=== PATIENT | female | born 1945 | race Caucasian/White ===

== ENCOUNTER → 2019-07-26 13:51 | Outpatient (CLI) | payer MEDICARE, MEDICAID, SELFPAY ==
[2017-05-06 06:31] VITALS: BMI 34.7
== END ==
DX: N39.0 Urinary tract infection, site not specified (principal)
CPT/HCPCS: 87086; 87088

== ENCOUNTER → 2021-02-10 12:38 | Outpatient (CLI) | payer MEDICARE, MEDICAID, SELFPAY ==
--- NOTE | 2021-02-10 12:41 | US_ITS ---
STUDY: RENAL ULTRASOUND - COMPLETE REASON FOR EXAM: Female, 75 years old. CKD TECHNIQUE: Ultrasound evaluation of the kidneys was performed with real-time and static coburn-scale imaging. COMPARISON: None. FINDINGS: RIGHT KIDNEY: Normal location of the right kidney, which is normal in size. The right kidney measures 10 cm x 5.5 cm x 3.8 cm. There is a normal cortex of the right kidney. The renal cortex measures 1.2 cm. There is no right renal mass or cyst. There are no right renal calculi. There is no right hydronephrosis. DISTAL RIGHT URETER: There is non-visualization of the distal right ureter. There is no demonstrated right ureterovesical junction calculus. There is a visualized right ureteral jet. LEFT KIDNEY: Normal location of the left kidney, which is normal in size. The left kidney measures 9.3 cm x 5 cm x 5.3 cm. There is a normal cortex of the left kidney. The renal cortex measures 1.7 cm. 2 renal cysts are seen. The larger measures 1.2 cm x 1.4 cm x 1 cm. There are no left renal calculi. There is no left hydronephrosis. DISTAL LEFT URETER: There is non-visualization of the distal left ureter. There is no demonstrated left ureterovesical junction calculus. There is a visualized left ureteral jet. BLADDER: The distended urinary bladder has a volume of 327 ml. There is a normal wall thickness of the distended urinary bladder. There is no demonstrated mass within the urinary bladder. There are no demonstrated bladder calculi. US/Kidney and Bladder IMPRESSION: There are 2 right renal cysts. Electronically Signed: Anand Keller MD at 14:24 EDT , Service support ,
== END ==
PROVIDERS: Referring Provider Nurse Practitioner Adult Health; Visit Provider Nurse Practitioner Adult Health
DX: N18.30 Chronic kidney disease, stage 3 unspecified (principal)
CPT/HCPCS: 76770

== ENCOUNTER → 2022-01-21 | Outpatient (CLI) | payer MEDICARE, MEDICAID, SELFPAY ==
[2022-01-21 13:50] VITALS: PULSE 102; PULSE 109; PULSE 110; PULSE 111; PULSE 113; PULSE 82; PULSE 85; O2SAT 91; O2SAT 94; O2SAT 95; O2SAT 96; O2SAT 98
--- NOTE | 2022-01-22 08:15 | WT_ITS ---
PSN 6 Minute Walk Test 6 Minute Walk Test 6 Minute Walk Test: 6 Minute Walk Test PSN:6-Minute Walk Test Start: 01/21/22 13:50 Freq: Status: Active Protocol: [id number] Document 01/21/22 13:50 FR (Rec: 01/21/22 13:57 FR [id number]) 6 Minute Walk Test Date Performed 01/21/22 Time Performed 13:15 Height 5 ft 4 in Weight: 240 lb Weight in Pounds 240.[address]: DR. SCOTT FIO2 (% Oxygen) 21 Assistive device used: Cane Pre-test Oxygen Delivery Method Room Air Pulse Ox (%) 98 Pulse Rate (60-100 beats/min) 82 Dyspnea Lindsay Scale (0-10) 6 Exertion Lindsay Scale (6-20) 12 1st minute Oxygen Delivery Method Room Air Pulse Ox (%) 91 Pulse Rate (60-100 beats/min) 102 H 2nd minute Oxygen Delivery Method Room Air Pulse Ox (%) 95 Pulse Rate (60-100 beats/min) 109 H Reported Symptoms Increased Work of Breathing 3rd minute Oxygen Delivery Method Room Air Pulse Ox (%) 94 Pulse Rate (60-100 beats/min) 111 H Reported Symptoms Increased Work of Breathing 4th minute Oxygen Delivery Method Room Air Pulse Ox (%) 95 Pulse Rate (60-100 beats/min) 111 H Number of Rests Taken 1 5th minute Oxygen Delivery Method Room Air Pulse Ox (%) 94 Pulse Rate (60-100 beats/min) 113 H Reported Symptoms Increased Work of Breathing 6th minute Oxygen Delivery Method Room Air Pulse Ox (%) 95 Pulse Rate (60-100 beats/min) 110 H Dyspnea Lindsay Scale (0-10) 10 Exertion Lindsay Scale (6-20) 20 Reported Symptoms Increased Work of Breathing Post-test Oxygen Delivery Method Room Air Pulse Ox (%) 96 Pulse Rate (60-100 beats/min) 85 Full Laps Walked 12 Partial Lap, Number of Tiles Walked 21 Total Distance Walked (ft) 729 Interpretation Interpretation: The patient ambulated 729 feet over the course of 6 minutes beginning on room air with the use of a cane. Pretesting oxygen saturation was noted to be 98% on room air. With ambulation, the cortes oxygen saturation was 91%. This testing indicates the presence of impaired walk distance and significant exertional oxygen desaturation. Recommendations Recommendations: There is no indication for the use of supplemental oxygen at this time. Olivier liam, close interval follow-up is recommended, given the degree of oxygen desaturation noted during this study.
== END | disposition home or self-care (01) ==
LOC: PSN 13:11
PROVIDERS: Referring Provider Internal Medicine Critical Care Medicine; Visit Provider Internal Medicine Critical Care Medicine
DX: R06.02 Shortness of breath (principal)
CPT/HCPCS: 94618

== ENCOUNTER → 2022-02-12 | Outpatient (CLI) | payer MEDICARE, MEDICAID, SELFPAY ==
--- NOTE | 2022-02-12 15:25 | CT_ITS ---
EXAM: CT CHEST WITHOUT INTRAVENOUS CONTRAST CLINICAL INDICATION: shortness of breath TECHNIQUE: Helically acquired images were obtained of the chest without intravenous contrast. This CT exam was performed using one or more of the following dose reduction techniques: automated exposure control, adjustment of the mA and/or kV according to patient size, and/or use of iterative reconstruction technique. This report was created using Periscope report generation technology. COMPARISON: None. FINDINGS: LUNGS AND PLEURAL SPACES: Unremarkable. No mass. No consolidation or edema. No pleural effusion or thickening. No pneumothorax. HEART: Unremarkable. Heart size is normal. No pericardial effusion. No significant coronary artery calcifications. MEDIASTINUM: There is a calcified subcarinal node. Esophagus is unremarkable. No hiatal hernia. THYROID: Unremarkable. No thyroid lesions. BONES/JOINTS: Unremarkable. No suspicious lytic or blastic abnormality. VASCULATURE: Unremarkable. Thoracic aorta is non-dilated. CT/Chest without Contrast IMPRESSION: No acute findings in the chest. Electronically Signed: Robert Zaidi MD at 17:55 EDT ,
== END | disposition home or self-care (01) ==
LOC: CT 15:24
PROVIDERS: Referring Provider Nurse Practitioner Acute Care; Visit Provider Nurse Practitioner Acute Care
DX: R06.02 Shortness of breath (principal)
CPT/HCPCS: 71250

== ENCOUNTER → 2022-07-15 | Outpatient (CLI) | payer MEDICARE, MEDICAID, SELFPAY ==
--- NOTE | 2022-07-15 13:43 | CPS ---
Patient had one dose of sterile saline for inhalation per testing protocol followed by 4 increasing methacholine doses. Patient had a 20% drop in FEV1 after the 4th dose, stopped testing and administered an Albuterol nebulizer treatment. 5th dose of methacholine was placed in the pharmaceutical waste container.
--- NOTE | 2022-07-16 05:39 | BRONCHALL_ITS ---
Bronchoprovocation Challenge Bronchoprovocation Challenge Bronchoprovocation Challenge: Brief HPI: Patient is a 76 year old female, currently under the care of Dr. Rhoades, who presents to [facility] for a bronchoprovocation study secondary to diagnosis of dyspnea. Respiratory therapist reports good effort and reproducible results. Interpretation: Initial spirometry showed no large airways obstructive ventilatory defect. The patient was then given increasingly concentrated doses of methacholine in a stepwise/standardized fashion, using a modified ATS protocol. [The patient had a significant reduction in FEV1 by] 28% and a calculated PD20 of 0.112. Impression: Positive bronchoprovocation study in a range consistent with a diagnosis of asthma
== END | disposition home or self-care (01) ==
PROVIDERS: Referring Provider Internal Medicine Critical Care Medicine; Visit Provider Internal Medicine Critical Care Medicine
DX: R06.02 Shortness of breath (principal)
CPT/HCPCS: 94070; 95070; J3490; J7674

== ENCOUNTER → 2022-07-30 | Outpatient (CLI) | payer MEDICARE, MEDICAID, SELFPAY ==
--- NOTE | 2022-07-30 12:39 | ECHOCS_ITS ---
Reason For Study: DYSPNEA/SOB Procedure This was a 2D Doppler, Color Flow transthoracic echocardiogram. The study was technically difficult. Exam performed in department. Left Ventricle Normal LV size. Left ventricular systolic function is normal. The estimated ejection fraction is 65 %. Stage 1 diastolic dysfunction. No regional wall motion abnormalities noted. Right Ventricle Normal RV size. Normal systolic function. Atria Normal left atrium. Normal right atrium. Mitral Valve Normal mitral valve. Tricuspid Valve Normal tricuspid valve. Mild tricuspid valve insufficiency. Pulmonary artery systolic pressure is 36 mmHg. Aortic Valve Normal aortic valve. Pulmonic Valve Normal pulmonic valve. Great Vessels Normal aortic root. The pulmonary artery is normal size. Inferior vena cava collapse with respiration. Pericardium/Pleural No pericardial effusion. Medication 22 gauge I.V. with prn adaptor inserted into right arm. Diluted definity 3ml given slow IV push to enhance endocardial definition. MMode/2D Measurements & Calculations LVIDd: 3.9 cm IVSd: 1.1 cm Ao root diam: 2.8 cm LVIDs: 2.4 cm LVPWd: 1.1 cm RVDd: 3.9 cm FS: 38.6 % LAV(MOD-bp): 30.0 ml LVAd ap4: 26.2 cm2 SV(MOD-sp4): 52.2 ml LAV(MOD-bp) Indexed: 14.3 ml/m2 LVLd ap4: 7.4 cm LAV(MOD-sp2): 27.0 ml EDV(MOD-sp4): 74.9 ml LAV(MOD-sp4): 32.5 ml EDV(sp4-el): 79.0 ml LVAs ap4: 12.8 cm2 LVLs ap4: 5.9 cm ESV(MOD-sp4): 22.8 ml ESV(sp4-el): 23.7 ml EF(MOD-sp4): 69.6 % EF(sp4-el): 70.1 % SV(sp4-el): 55.3 ml LA A4 area: 14.0 cm2 LA dimension(2D): 3.2 cm RA A4 area: 11.3 cm2 Time Measurements MV dec time: 0.19 sec Doppler Measurements & Calculations MV E max zev: 69.7 cm/sec Lat Peak E' Zev: 10.5 cm/sec Med Peak E' Zev: 9.8 cm/sec MV A max zev: 81.6 cm/sec E/E' lat: 6.6 E/E' med: 7.1 MV E/A: 0.85 Ao V2 max: 136.2 cm/sec LV V1 max: 124.4 cm/sec PA V2 max: 129.2 cm/sec Ao max P.4 mmHg LV V1 max P.2 mmHg TR max zev: 284.7 cm/sec TR max P.4 mmHg ECHO/Echo Complete W/ Contrast Interpretation Summary Normal LV size. Left ventricular systolic function is normal. The estimated ejection fraction is 65 %. Stage 1 diastolic dysfunction. Pulmonary artery systolic pressure is 36 mmHg. Contrast injection was performed. Ordering Physician: Mulugeta Rhoades Referring Physician: EMMA FOSTER Performed By: Marilyn Singh RDCS
== END | disposition home or self-care (01) ==
LOC: CVS 12:37
PROVIDERS: Visit Provider Internal Medicine Critical Care Medicine
DX: R06.02 Shortness of breath (principal)
CPT/HCPCS: 93306; Q9957; A4216; C8929

== ENCOUNTER → 2023-08-24 | Outpatient (CLI) | payer MEDICARE, MEDICAID, SELFPAY | END | disposition home or self-care (01) | LOC: SL 20:00 | PROVIDERS: Referring Provider Nurse Practitioner Acute Care; Visit Provider Nurse Practitioner Acute Care | DX: G47.10 Hypersomnia, unspecified (principal) | CPT/HCPCS: 95810 ==

== ENCOUNTER → 2023-09-20 | Outpatient (CLI) | payer MEDICARE, MEDICAID, SELFPAY ==
[2023-09-20] MEDS: Betamethasone/Betamethasone 30 MG/5 ML Vial 12 MG INTRAARTIC (13:45)
[2023-09-20] MEDS: Lidocaine 2% (5ml sdv) 5 ML VIAL.MPF INFILT (13:45)
--- NOTE | 2023-09-20 13:57 | PCM.OP.PRO ---
Procedure Report Date of Procedure: 09/20/23 Assessment & Plan Assessment/Plan (1) Primary osteoarthritis of right shoulder: PLAN: PROCEDURE: Fluoroscopic Guided right shoulder injection ORDERING PROVIDER: Dr. Jerel Lewis INDICATION: Female, 77 years old. Primary osteoarthritis of right shoulder. PROVIDER: QUEENIE Cartagena PROCEDURE: CONSENT: The risks, benefits, and alternatives to the procedure were explained to the patient. The specific risks of bleeding, infection, and neurovascular injury were detailed and accepted. Witnessed informed consent was obtained. TECHNIQUE: The right shoulder access site was prepped and draped in sterile fashion. 2% Lidocaine was administered subcutaneously for local anesthesia. A 22-gauge spinal needle was positioned under radiographic fluoroscopic localization. Approximately 2 cc of Isovue 300 instilled for localization purposes. Medication was then injected. MEDICATIONS: 12 mg of betamethasone and 4 ml of 1% lidocaine. The spinal needle was removed, and a dressing was applied. The patient tolerated the procedure well without any immediate complications. IMPRESSION: Successful fluoroscopic guided right shoulder injection.
== END | disposition home or self-care (01) ==
PROVIDERS: Referring Provider Specialist; Visit Provider Specialist
DX: S46.011A Strain of muscle(s) and tendon(s) of the rotator cuff of right shoulder, initial encounter (principal); M19.011 Primary osteoarthritis, right shoulder; X58.XXXA Exposure to other specified factors, initial encounter
CPT/HCPCS: 20610; 77002; J0702

== ENCOUNTER 2023-11-11 13:30 | Outpatient (RCR) | payer MEDICARE, MEDICAID, SELFPAY ==
--- NOTE | 2023-09-22 17:45 | HP.PTEVAL_ITS ---
Patient's Visit Information Visit Information Visit Information: NICOLASA HOUSE is a 77 year old F referred to Physical Therapy by Dr. Jerel Lewis MD with a diagnosis of R RC strain and repeated falls. Date of Evaluation: 09/22/23 Physical Therapist: Manuelito Shaikh, JOVITAT, OCS, CSCS Visit Plan Frequency: 3x /Week Duration: 4-6 Weeks Plan: 3x/week x 4-6 to start aquatic therapy for general ex and focus on R shoulder ROM and progression to HEP. IE: new HEp:stick flexion and use walker 100% of time Subjective Subjective: R shoulder hurts, Had RC tear and work done yrs ago in therapy. Has fallen a number of times and R shoulder has hit wall and now it hurts more again. Fell 5 x in last year and landed on R shoulder. 1. 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 restaurant coming out and tripped on step 3. Fell at home 1x R shoulder hurts constant now 01/23 prior to injection then Tuesday felt better 10 today which is worse cause it is raining. Worse with lifting Basic ADLs: dressing slowly and painfully, wearing loose clothes, showers but in chair and not in shower, afraid to falls, bathroom I. Live alone in [address] apartments no steps. using two canes to get around for a couple years. Have a rollator at home but it is hard to lift into car. Driving is OK. Enjoys crafting but hard prior to injection now can do but painful. Pain R shoulder: Pain Intensity (Out of 10): 3 Pain Intensity Range: 3 and 9 Objective Objective: Walks into PT with B canes mod I, slow and hesitant to shift weight, can walk without canes but can be wobbly. Transfers chair and bed I but slow and labored. No steps today. cervical aROM WFL adn without pain, tender to touch R UT and anterior shoulder area generally. R shoulder AROM 85 felxion, 40 er, L shoulder to 150 flexion and 50 er. scap AROM limited but B and without pain. e;nbow and wrist aROM wFL. strength er R 3+ and L 4-, IR 4- B and painful R, flexion NT R due to pain and 4 on L , abduction similar to flexion. elbow strength 4/5 B. sensation UE WNL to gross light touch B UE. reflexes 1/3 bi and tri B. Movement and mobility is poor in trasnfers and bed and walking but funcitonal, much safer with walker and recommended this for all ambuilation. PROM R shoulder to 145 flexion and 60 er on R. + HK and + neer. Balance/Special Test Scores Functional Gait Assessment Score: 20 % Disability: 33.3400 Quick DASH Score: 86.3625 30 Second Chair Rise Test Seconds: 6 Goals Goal 1:: 10 on 30 sec sit to stand to show improved mobility Goal Time Frame: 4-6 Weeks Goal 2:: FGA score Goal Time Frame: 4-6 Weeks Goal 3:: R shoulder AROM flexion to 140 adn er to 65 so able to put arm behind head without pain. Goal Time Frame: 4-6 Weeks Goal 4:: I strength for shoulder and general ex via HEP Goal Time Frame: 4-6 Weeks Goal 5:: 25 or less quickdash core Rehabilitation Potential Physical Therapy Diagnosis: liited shoulder mobility and frequent falls effecting comfortable function Rehabilitation Potential: Good Anticipated Interventions Patient/Client Instruction: Educate patient on: Condition and Risk Factors For the Purpose of:: To decrease pain, To increase ROM, To improve nutrient delivery to tissue, To improve muscle performance and motor function, To increase tolerance to activity/condition/position and To improve ability of physical actions for home/community/work/leisure Therapeutic Exercise to Include: Strength training, Balance training, Gait and locomotor training, In an aquatic setting, Passive ROM and Active ROM For the Purpose of:: To decrease pain, To increase ROM, To improve nutrient delivery to tissue, To improve muscle performance and motor function, To increase tolerance to activity/condition/position and To improve gait and locomotor functions Text: Thank you for the opportunity to evaluate your patient. For Medicare and Medicare HMO plans, please review the plan of care and approve it. It will need to be FAXED BACK to us at [phone] for Medicare purposes. For Medicare only, by signing this I certify the plan of care. Please let me know if there are questions or concerns regarding this plan of care. Physician Signature: Date:
--- NOTE | 2023-11-11 14:19 | HP.PTDCSUM ---
Discharge Summary D/C summary: It has been my pleasure to treat NICOLASA HOUSE referred by Dr. Jerel Lewis MD, with the diagnosis of R RC strain and repeated falls for a total of 12 visit(s). Discharge Date: 11/11/23 Please see the following information for a summary of their discharge status. Subjective Subjective: Im ok when it is cool , worse in the heat. Shoulder is worse int he am and is stiff and sore and painful even to 10. No better than a month ago feeling conroy. Same pain with lifting, maybe moves slightly better. Sleeping with pain all over. Not a lot better overall. No falls, using 2 canes all the time. HEP going OK at home but not helpful Pain R shoulder: Pain Intensity (Out of 10): 5 BACK: Pain Intensity (Out of 10): 6 L wrist: Pain Intensity (Out of 10): Unrated Hamstrings: Pain Intensity (Out of 10): Unrated Overall Improvement % Improvement: 10 Objective Objective/Function: 93 R shoulder flexion AROM and 120 PROm limited by pain. Er R to 20 and L 45 limited by pain. C/O pain throughout body. FGA and 30 SSTS not changing Overall still painful throughout body and uncofortable lifting /moving R UE. Using 2 canes to ambulate and has wh walker at e which is recommended. Goals Goal 1:: 10 on 30 sec sit to stand to show improved mobility Goal Progress: Not Progressing Goal 2:: FGA score 30 Goal Progress: Not Progressing Goal 3:: R shoulder AROM flexion to 140 adn er to 65 so able to put arm behind head without pain. Goal Progress: Not Progressing Goal 4:: I strength for shoulder and general ex via HEP Goal Progress: Goal Met Goal 5:: 25 or less quickdash core Goal Progress: Not Progressing Plan Plan: d/c, Pt back to doctor due to lack of progress. D/C Information Discharge Comments: Not improving d/c sentence: If there are questions or concerns regarding this patient's physical therapy, please feel free to call me at [phone]. Thank you for the referral of this patient. Sincerely, Manuelito Shaikh, DPT, OCS, CSCS Balance/Gait/Functional tests Balance/Special Test Scores Functional Gait Assessment Score: 19 % Disability: 36.6700 Quick DASH Score: 77.2725 30 Second Chair Rise Test Seconds: 8 Improvement % Improvement: 10
== END 2023-11-11 19:00 | disposition home or self-care (01) ==
LOC: PT 13:30
PROVIDERS: Referring Provider Specialist; Visit Provider Specialist
DX: S46.011D Strain of muscle(s) and tendon(s) of the rotator cuff of right shoulder, subsequent encounter (principal); R29.6 Repeated falls; Z68.41 Body mass index [BMI] 40.0-44.9, adult
CPT/HCPCS: 97110; 97113; 97162; 97530

== ENCOUNTER → 2023-12-07 | Outpatient (CLI) | payer MEDICARE, MEDICAID, SELFPAY ==
[2023-12-07 13:45] LABS: Hemoglobin A1c 5.2 % (3.8-5.6)
== END | disposition home or self-care (01) ==
PROVIDERS: Referring Provider Orthopaedic Surgery Sports Medicine; Visit Provider Orthopaedic Surgery Sports Medicine
DX: R73.03 Prediabetes (principal)
CPT/HCPCS: 36415; 83036

== ENCOUNTER → 2023-12-10 | Outpatient (CLI) | payer MEDICARE, MEDICAID, SELFPAY ==
--- NOTE | 2023-12-10 09:57 | CT_ITS ---
HISTORY: plan for reverse shoulder, need blueprint cuts. TECHNIQUE: Helically acquired images were obtained of the right shoulder without contrast. 2-D reformats were performed by the technologist. A radiation dose optimization technique was used for this scan. 537 images. COMPARISON: CT chest 02/12/2022. FINDINGS: BONES: No acute fracture identified. Degenerative subchondral cysts and sclerosis of the glenohumeral joint. JOINT SPACES: Moderate glenohumeral joint space narrowing without dislocation. Mild acromioclavicular degenerative change without subluxation. SOFT TISSUES: Abnormal periarticular fluid collections. Right lung apex clear. Mild scarring in the medial right lower lobe. Chronic nodular thyroid. CT/Extremity Upper without Contra IMPRESSION: No acute fracture or dislocation identified in the right shoulder. Osteoarthritis as above. Electronically Signed: Stella Patel MD at 10:57 EDT ,
== END | disposition home or self-care (01) ==
LOC: CT 09:55
PROVIDERS: Referring Provider Orthopaedic Surgery Sports Medicine; Visit Provider Orthopaedic Surgery Sports Medicine
DX: M19.011 Primary osteoarthritis, right shoulder (principal)
CPT/HCPCS: 73200

== ENCOUNTER 2024-01-11 09:52 | Observation (INO) | payer MEDICARE, MEDICAID, SELFPAY ==
[2024-01-02 15:09] LABS: Absolute Lymphocyte Count 1.81 X10^3/uL (0.83-4.51); Basophil# 0.03 X10^3/uL; Basophil% 0.5 % (0-1); Eosinophil# 0.18 X10^3/uL; Eosinophils% 2.7 % (0-5); Hematocrit 42.7 % (37-47); Hemoglobin 13.2 g/dL (12.0-15.0); Lymphocyte # 1.81 X10^3/ul (0.83-4.51); Lymphocyte % 27.3 % (19-41); Mean Corp Hgb Conc 30.9 g/dL (32-36); Mean Corpuscular Hgb 28.8 pg (27.0-32.0); Mean Corpuscular Volume 93.2 fL (81-99); Mean Platelet Vol. 10.9 fl (6.2-12.0); Monocyte# 0.55 X10^3/uL; Monocyte% 8.3 % (0-10); NRBC Flagged by Analyzer 0 % (0-5); Neutrophil # 4.03 X10^3/uL (2.7-7.7); Neutrophil % 60.9 % (47-70); Platelet Count 193 K/mm3 (150-450); RBC Distribution Width CV 13.9 % (11.6-14.6); RBC Distribution Width SD 47.6 fl (35.1-43.9); Red Blood Count 4.58 M/mm3 (4.2-5.4); White Blood Count 6.6 K/mm3 (4.4-11.0)
[2024-01-02 15:36] LABS: Partial Thromboplast Time 29.8 Seconds (24.1-36.2)
[2024-01-02 15:52] LABS: Anion Gap 7 (5-15); BUN 22 mg/dL (7-18); Chloride 105 mmol/L (98-107); Creatinine, Serum 0.88 mg/dL (0.55-1.02); EST Glomerular Filtration Rate 66 mL/min (>60); Est Glom Filt Rate - Afr Amer 80 mL/min (>60); Glucose 124 mg/dL (74-106); Potassium 3.5 mmol/L (3.5-5.1); Sodium Level 140 mmol/L (136-145)
[2024-01-02 17:29] LABS: Magnesium 2.2 mg/dL (1.6-2.6)
[2024-01-05 05:07] LABS: Fructosamine 233 umol/L (0-285)
[2024-01-11] VITALS (13 sets, daily range): BP systolic 114–156; BP diastolic 49–93; PULSE 75–100; RESP 14–18; TEMP 35.9–36.9; O2SAT 93–100; BMI 43.9
[2024-01-11] MEDS: Magnesium 1 GM over 15 mins IV (06:10)
[2024-01-11] MEDS: Lactated Ringers 1,000 ML 15 ML IV (06:19)
[2024-01-11] MEDS: Scopolamine 1mg/72hr Patch 1 PATCH TD (06:20)
[2024-01-11] MEDS: Acetaminophen 500 MG Tablet 1000 MG PO (06:22)
[2024-01-11 06:44] LABS: Bedside Glucose 90 mg/dL (74-106)
[2024-01-11] MEDS: Gabapentin 300 MG Capsule PO (06:50)
--- NOTE | 2024-01-11 06:53 | PCM.HP.STD ---
HPI - General HPI Narrative NICOLASA HOUSE, is a 78 F who presents for right reverse total shoulder arthroplasty. No changes to history and physical exam. Right shoulder marked. Patient has minimal social support so they may need to stay in hospital potentially get transferred to a rehab unit after surgery. Risks alternatives benefits postoperative instructions discussed and follow-up discussed with the patient narcotic counseling. They understood no further questions or concerns okay to proceed. MR#: [id number] Acct: [id number] Name: NICOLASA HOUSE Rep #: [id number] : 1945 Provider: Dr. Lester Blankenship MD Age/Sex: 77/F Location: [facility] [place].JULIET[facility] Status: Signed Intake Vital Signs 11/27/2412:06 Height 5 ft 4 in Weight: 236 lb BMI 40.5 Intake Visit Reasons: RIGHT SHOULDER Chief Complaint: Right Shoulder CT Review Accompanied by: Self Is patient in pain?: Yes Pain scale (1-10): 8 Allergies adhesive tape Allergy (Verified 12/13/23 14:03) Rashlatex Allergy (Verified 12/13/23 14:03) Rashraw vegetable Allergy (Verified 12/13/23 14:03) Diarrheasoap Allergy (Verified 12/13/23 14:03) Rashaspirin Adverse Reaction (Unknown, Verified 12/13/23 14:03) GI upsetwatermelon Adverse Reaction (Unknown, Verified 12/13/23 14:03) 'sick' Medications ?Medication ?Instructions ?Recorded ?Confirmed ?Type alendronate 70 mg tablet (Fosamax) 70 mg PO MO 04/29/17 12/13/23 History aspirin 81 mg tablet,delayed 81 mg PO DAILY@0800 04/29/17 12/13/23 History release atorvastatin 10 mg tablet 10 mg PO QHS 04/29/17 12/13/23 History cyanocobalamin (vitamin B-12) 500 500 mcg PO QWEEK 04/29/17 12/13/23 History mcg tablet (Vitamin B-12) hydroxyzine HCl 25 mg tablet 25 mg PO TID for rash 04/29/17 12/13/23 History latanoprost 0.005 % eye drops 1 drp QHS 04/29/17 12/13/23 History olmesartan 40 mg-amlodipine 10 1 ea PO DAILY 04/29/17 12/13/23 History mg-hydrochlorothiazide 25 mg tablet (Tribenzor) omega 3-dha 60 mg-epa 90 mg-fish 500 mg PO DAILY 04/29/17 12/13/23 History oil 500 mg capsule, delayed release (Fish Oil) omeprazole 20 mg capsule,delayed 20 mg PO DAILY 04/29/17 12/13/23 History release ascorbic acid (vitamin C) 1,000 mg 1 g PO Q6H 12/25/21 12/13/23 History capsule baclofen 10 mg tablet 10 mg PO BID 12/25/21 12/13/23 History cholecalciferol (vitamin D3) 1,250 1,250 mcg PO QWEEK 12/25/21 12/13/23 History mcg (50,000 unit) capsule cinnamon bark 500 mg capsule 1,000 mg PO DAILY 12/25/21 12/13/23 History diclofenac sodium 1 % topical gel 2 g topical .QID PRN 12/25/21 12/13/23 History diphenhydramine HCl 25 mg capsule 25 mg PO TID PRN 12/25/21 12/13/23 History (Benadryl) ferrous sulfate 325 mg (65 mg 325 mg PO BID 12/25/21 12/13/23 History iron) tablet (FeroSul) gabapentin 100 mg capsule 300 mg PO TID 12/25/21 12/13/23 History (Neurontin) garlic 300 mg capsule 300 mg PO DAILY 12/25/21 12/13/23 History montelukast 10 mg tablet 10 mg PO QHS sinus drainage 12/25/21 12/13/23 History vitamin E (dl, acetate) 180 mg 180 mg PO DAILY 12/25/21 12/13/23 History (400 unit) capsule zinc gluconate 50 mg tablet 50 mg PO DAILY 12/25/21 12/13/23 History brimonidine 0.1 % eye drops 1 drp ophthalmic (eye) TID 12/31/21 12/13/23 History (Alphagan P) hydrocodone-acetaminophen 5-325mg 1 tab PO BID 04/22/22 12/13/23 History 5mg-325mg potassium chloride 10 mEq 10 meq PO BID 08/02/22 12/13/23 History tablet,extended release(part/cryst) cranberry fruit concentrate 250 mg 250 mg PO BID 08/10/23 12/13/23 History chewable tablet (Azo Cranberry) fluticasone furoate 100 1 inh inhalation DAILY #60 ea 08/10/23 12/13/23 Rx mcg-vilanterol 25 mcg/dose inhalation powder (Breo Ellipta) pregabalin 150 mg capsule 150 mg PO TID 08/10/23 12/13/23 History albuterol sulfate 90 mcg/actuation 2 puff inhalation Q4H PRN 11/02/23 12/13/23 Rx aerosol inhaler shortness of breath or wheezing #8.5 grams Have you fallen in the past year?: No (??) PFSH Medical History Hypokalemia Diabetes mellitus Vitamin D deficiency Spondylosis without myelopathy or radiculopathy, lumbar region SOB (shortness of breath) RLS (restless legs syndrome) Renal cysts, acquired, bilateral Post-menopausal Polypharmacy Peripheral edema Mild carpal tunnel syndrome Lumbar foraminal stenosis DJD (degenerative joint disease), lumbar Left knee pain Insomnia Idiopathic peripheral neuropathy Hypoglycemia Hypertensive CKD (chronic kidney disease) Hypertension Hyperlipidemia GERD (gastroesophageal reflux disease) Essential tremor [place] (dyspnea on exertion) Diverticulitis CKD (chronic kidney disease) stage 3, GFR 30-59 ml/min Chronic prescription benzodiazepine use Anxiety Surgical History History of cataract surgery Hx of tonsillectomy Hx of appendectomy History of hysterectomy H/O arthroscopy of knee History of knee replacement History of bladder surgery Social History Smoking Status: Never smoker HPI RIGHT SHOULDER Details: This documentation accurately reflects the service provided and the decisions made by me, Dr. Lester Blankenship MD 12/13/23 6545. Part of today?s visit was documented by [ ], acting as scribe. NICOLASA HOUSE is a 77 year old F here today for follow-up right shoulder CT scan for reverse total shoulder arthroplasty planning. The patient still having pain pain at rest and difficulty lifting up the arm. No changes to the patient's health Ortho Exam General General: Yes no acute distress Neurologic: Yes alert and Yes oriented x3 Psychologic: Yes reasonable and appropriate Right Shoulder Skin/Wound: Yes CDI, No ecchymosis, No erythema and No swelling Testing: Positive Hawkin's, Neer's, Speed's, TTP Biceps, empty can and belly press normal; Negative TTP AC Joint, Drop Arm, cross arm or scapular winging SHOULDER: normal motor and sens to ax nerve, and MRU and AIN/PIN active fe 45, passive 100. er 30. painful FE. Supplemental Info [facility] Imaging Services [address] [place], [place] [address] Extremity Upper without Contra MR#: [id number] Acct: [id number] Name: NICOLASA HOUSE Rep #: [id number] : 1945 F 77 From: Stella Patel MD PCP: Dr. Meli Cruz, DO Status: REG CLI Study: Extremity Upper without Contra Date of Exam: 12/10/23 Exam# [id number] Ordering Dr: Lester Blankenship MD HISTORY: plan for reverse shoulder, need blueprint cuts. TECHNIQUE: Helically acquired images were obtained of the right shoulder without contrast. 2-D reformats were performed by the technologist. A radiation dose optimization technique was used for this scan. 537 images. COMPARISON: CT chest 02/12/2022. FINDINGS: BONES: No acute fracture identified. Degenerative subchondral cysts and sclerosis of the glenohumeral joint. JOINT SPACES: Moderate glenohumeral joint space narrowing without dislocation. Mild acromioclavicular degenerative change without subluxation. SOFT TISSUES: Abnormal periarticular fluid collections. Right lung apex clear. Mild scarring in the medial right lower lobe. Chronic nodular thyroid. CT/Extremity Upper without Contra IMPRESSION: No acute fracture or dislocation identified in the right shoulder. Osteoarthritis as above. Electronically Signed: Stella Patel MD at 10:57 EDT , I independently reviewed the imaging. Concur with radiologist report. Coding Level of Care Code Off vis,est,level 4 Diagnoses Primary osteoarthritis of right shoulder M19.011 Assessment and Plan Assessment and Plan (1) Primary osteoarthritis of right shoulder: Status: Acute Plan: 77-year-old female with right shoulder osteoarthritis and difficulty lifting. I had ordered an MRI originally but at this point the patient has nearly pseudoparalysis of the upper extremity quite difficulty lifting and an MRI would not change my plan at this point which would be to recommend a reverse total shoulder arthroplasty. The patient has some restrictive airway disease morbid obesity borderline diabetic but hemoglobin A1c is under 7 at 5.2. These things do increase the risks of surgical complications like infection instability or other risks. The patient understands we discussed the pros and cons risks and benefits of continued nonoperative treatment as well as other options and surgery in the form of right reverse total shoulder arthroplasty. The patient wishes to go ahead with surgery explained the recovery associated with that potential risks like a instability infection fracture damage other structures and surgical complications or anesthetic risks like VTE or patient understands we will get a preoperative clearance and signed the consent form for right reverse total shoulder arthroplasty. Pros and cons risks and benefits were discussed with the patient including but not limited to infection, pain, stiffness, bleeding, damage to surrounding structures, neurovascular injury, recurrence or retear, failure or wear of hardware or fixation, instability, fracture, deep vein thrombosis and pulmonary embolism, anesthetic risks, , patient dissatisfaction, need for further surgery and other risks. Patient understood and wished to proceed with surgery, and signed the informed consent documentation. [facility] Medical History (Updated 12/28/23 @ 08:47 by Judy Osorio) History of stress test Lives alone Wears glasses Wears dentures Cancer Walker as ambulation aid Arthritis Bladder disease Low iron Fatty liver High cholesterol Syncope Difficulty swallowing History of hiatal hernia History of ulceration Asthma Shortness of breath on exertion Leg cramps History of pain when walking History of edema History of echocardiogram Hypokalemia Diabetes mellitus Vitamin D deficiency Spondylosis without myelopathy or radiculopathy, lumbar region RLS (restless legs syndrome) Renal cysts, acquired, bilateral Post-menopausal Lumbar foraminal stenosis DJD (degenerative joint disease), lumbar Insomnia Idiopathic peripheral neuropathy Hypoglycemia Hypertensive CKD (chronic kidney disease) Hypertension GERD (gastroesophageal reflux disease) Essential tremor Diverticulitis CKD (chronic kidney disease) stage 3, GFR 30-59 ml/min Anxiety Home Medications ?Medication ?Instructions ?Recorded ?Last Taken ?Type alendronate 70 mg tablet (Fosamax) 70 mg PO MO 04/29/17 01/04/24 History aspirin 81 mg tablet,delayed 81 mg PO DAILY@0800 04/29/17 01/06/24 History release atorvastatin 10 mg tablet 10 mg PO QHS 04/29/17 01/10/24 History cyanocobalamin (vitamin B-12) 500 500 mcg PO QWEEK 04/29/17 01/09/24 History mcg tablet (Vitamin B-12) hydroxyzine HCl 25 mg tablet 25 mg PO TID PRN for rash 04/29/17 01/11/24 History latanoprost 0.005 % eye drops 1 drp QHS 04/29/17 01/10/24 History omega 3-dha 60 mg-epa 90 mg-fish 500 mg PO DAILY 04/29/17 01/10/24 History oil 500 mg capsule, delayed release (Fish Oil) omeprazole 20 mg capsule,delayed 20 mg PO DAILY 04/29/17 01/11/24 History release ascorbic acid (vitamin C) 1,000 mg 1 g PO DAILY 12/25/21 01/10/24 History capsule baclofen 10 mg tablet 10 mg PO BID 12/25/21 01/11/24 History cholecalciferol (vitamin D3) 1,250 1,250 mcg PO QWEEK 12/25/21 01/09/24 History mcg (50,000 unit) capsule cinnamon bark 500 mg capsule 1,000 mg PO DAILY 12/25/21 01/10/24 History diclofenac sodium 1 % topical gel 2 g topical TID PRN PRN pain 12/25/21 Unknown History diphenhydramine HCl 25 mg capsule 25 mg PO TID PRN allergy symptoms 12/25/21 Unknown History (Benadryl) ferrous sulfate 325 mg (65 mg 325 mg PO QWEEK 12/25/21 01/05/24 History iron) tablet (FeroSul) gabapentin 100 mg capsule 300 mg PO TID 12/25/21 01/11/24 History (Neurontin) garlic 300 mg capsule 300 mg PO DAILY 12/25/21 01/10/24 History montelukast 10 mg tablet 10 mg PO QHS sinus drainage 12/25/21 01/11/24 History vitamin E (dl, acetate) 180 mg 180 mg PO DAILY 12/25/21 01/10/24 History (400 unit) capsule zinc gluconate 50 mg tablet 50 mg PO DAILY 12/25/21 01/10/24 History brimonidine 0.1 % eye drops 1 drp ophthalmic (eye) TID 12/31/21 01/10/24 History (Alphagan P) hydrocodone-acetaminophen 5-325mg 1 tab PO BID 04/22/22 01/11/24 History 5mg-325mg potassium chloride 10 mEq 10 meq PO BID 08/02/22 01/10/24 History tablet,extended release(part/cryst) cranberry fruit concentrate 250 mg 250 mg PO BID 08/10/23 01/10/24 History chewable tablet (Azo Cranberry) fluticasone furoate 100 1 inh inhalation DAILY #60 ea 08/10/23 01/11/24 Rx mcg-vilanterol 25 mcg/dose inhalation powder (Breo Ellipta) pregabalin 150 mg capsule 150 mg PO TID 08/10/23 01/11/24 History albuterol sulfate 90 mcg/actuation 2 puff inhalation Q4H PRN 11/02/23 Unknown Rx aerosol inhaler shortness of breath or wheezing #8.5 grams fluticasone propionate 50 1 spray intranasal DAILY 12/28/23 01/10/24 History mcg/actuation nasal spray,suspension olmesartan 40 mg-amlodipine 10 1 tab PO DAILY 12/28/23 01/09/24 History mg-hydrochlorothiazide 12.5 mg tablet primidone 50 mg tablet 100 mg PO BID 12/28/23 01/11/24 History trazodone 50 mg tablet 50 mg PO .QHS PRN PRN sleep 12/28/23 Unknown History Allergy/AdvReac Type Severity Reaction Status Date / Time adhesive tape Allergy Rash Verified 01/11/24 05:51 latex Allergy Rash Verified 01/11/24 05:51 raw vegetable Allergy Diarrhea Verified 01/11/24 05:51 soap Allergy Rash Verified 01/11/24 05:51 aspirin AdvReac Unknown GI upset Verified 01/11/24 05:51 watermelon AdvReac Unknown 'sick' Verified 01/11/24 05:51 Surgical History (Updated 12/28/23 @ 08:46 by Judy Osorio) History of esophagogastroduodenoscopy (EGD) Hx of colonoscopy Hx of right cataract extraction Hx of left cataract extraction Hx of tonsillectomy Hx of appendectomy History of hysterectomy H/O arthroscopy of knee History of knee replacement History of bladder surgery Social History Smoking Status: Never smoker Vital Signs Vital Signs Vital Signs: 01/11/24 06:10 01/11/24 06:10 Temperature 97.6 F L Temperature Source Temporal Pulse Rate 76 Respiratory Rate 18 Respiratory Pattern Normal Blood Pressure 156/79 H Blood Pressure Mean 104 Blood Pressure Source Monitor Blood Pressure Position Semi-Fowlers Blood Pressure Location Left Arm Pulse Ox 97 Oxygen Delivery Method Room Air Weight Weight: 240 lb 4.862 oz Body Mass Index (BMI) 43.9 Results Lab / Micro Data 01/02/24 14:17 01/02/24 14:17 Labs: Laboratory Results - last 24 hr 01/11/24 06:08: POC Glucose 90
--- NOTE | 2024-01-11 07:27 | PRE.ANES_ITS ---
ASA Classification* ASA Classification ASA Classification: 3 Assessment & Plan Anesthesia* Anesthesia Assessment Anesthesia Assessment: Discussed sedation and/or anesthesia options, risks, benefits, and alternatives with patient/parents/legal guardian/POA. Questions invited. The patient/parents/legal guardian/POA seems to understand and agrees to proceed with anesthesia plan. Reviewed the physical assessment, medical history, allergy history and patient home medications list prior to surgery/procedure/anesthetic and documented any changes. Performed airway and anesthesia risk assessments. Anesthesia Type Anesthesia Type: General (Consented for block for post op pain) Anesthesia Focused Assessment* Temperature: 97.6 F Pulse Rate: 76 Blood Pressure: 156/79 Respiratory Rate: 18 Pulse Ox: 97 Airway Assessment Mouth opens: >3 cm Mallampati Score: II Focused Labs Anesthesia Preop lab: CBC WBC 6.6 K/mm3 (4.4-11.0) 01/02/24 14:17 RBC 4.58 M/mm3 (4.2-5.4) 01/02/24 14:17 Hgb 13.2 g/dL (12.0-15.0) 01/02/24 14:17 Hct 42.7 % (37-47) 01/02/24 14:17 Plt Count 193 K/mm3 (150-450) 01/02/24 14:17 CHEMISTRY Potassium 3.5 mmol/L (3.5-5.1) 01/02/24 14:17 Sodium 140 mmol/L (136-145) 01/02/24 14:17 Magnesium 2.2 mg/dL (1.6-2.6) 01/02/24 14:17 BUN 22 mg/dL (7-18) H 01/02/24 14:17 Creatinine 0.88 mg/dL (0.55-1.02) 01/02/24 14:17 Glucose 124 mg/dL (74-106) H 01/02/24 14:17 POC Glucose 90 mg/dL (74-106) 01/11/24 06:08 COAG PT 13.0 SECONDS (11.7-14.9) 01/02/24 14:17 Pre-Assessment Diagnosis/Proposed Procedure Planned Operative Procedure(s): RIGHT REVERSE TOTAL SHOULDER ARTHROPLASTY Anesthesia History 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 When Was Last Pacemaker Check QUESTION #4 FULL TEXT: You/Your Family Experience fever (hyperthermia) with Anesthesia Last Oral Intake Last Oral intake: Last Oral Intake NPO since 04:00 01/11/24 06:10 Meds taken in AM with sips of Yes 01/11/24 06:10 water? 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 Female Yes 12/28/23 08:27 HX of Motion Sickness Yes 12/28/23 08:27 HX of N/V After Surgery No 12/28/23 08:27 Non-Smoker Yes 12/28/23 08:27 Duration of Surgery greater Yes 12/28/23 08:27 than 60 minutes Number of Risk Factors 4 12/28/23 08:27 PONV Score Severe Risk 12/28/23 08:27 Height & Weight Height & Weight: Anesthesia: Height & Weight Height 5 ft 2 in 01/11/24 06:10 Weight: 109 kg 01/11/24 06:10 Body Mass Index (BMI) 43.9 01/11/24 06:10 Respiratory Assessment Respiratory Assessment - 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 Has anyone observed you stop No 12/28/23 08:27 breathing during sleep? STOP Results Positive 12/28/23 08:27 QUESTION #5 FULL TEXT : Do you snore loudly (louder than talking or can be heard through closed doors)? 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 Specify any problems Hx of Preganancy in last 3 No 12/28/23 08:27 Months Nurse Filling Out Transfusion DSCHRIBER 12/28/23 08:27 & Questions: Date: 12/28/23 12/28/23 08:27 Time: 08:30 12/28/23 08:27 Patient unable to answer at this time (ie. 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: /Reproductive Hx- concrete wall grinder operator Hx Now No 12/28/23 08:27 Gestational Age (in weeks): EDC: Hx Hx Para Hx Section SAB No 12/28/23 08:27 Active Medications Active Medications: Current Medications Generic Name Dose Route Start Last Admin Trade Name Bita PRN Reason Stop Dose Admin Acetaminophen 1,000 mg 01/11/24 07:30 01/11/24 06:22 Acetaminophen 500 Mg Tablet PO 01/11/24 07:31 1,000 mg X1 ONE Administration Dexamethasone Sodium Phosphate 10 mg 01/11/24 07:30 Dexamethasone 10 Mg/Ml Vial IV 01/11/24 07:31 X1 ONE Cefazolin Sodium 2 gm/ Sodium 110 mls @ 150 mls/hr 01/11/24 07:30 Chloride IV 01/11/24 08:13 PREOP ONE Tranexamic Acid 1,000 mg/ 110 mls @ 660 mls/hr 01/11/24 07:30 Sodium Chloride IV 08/28/24 07:39 X1 ONE Tranexamic Acid 1,000 mg/ 110 mls @ 660 mls/hr 01/11/24 07:30 Sodium Chloride IV 01/11/24 07:39 X1 ONE Lactated Ringer's 1,000 mls @ 125 mls/hr 01/11/24 07:30 IV 01/11/24 15:29 .Q8H SOHAIL Lactated Ringer's 1,000 mls @ 15 mls/hr 01/11/24 05:45 01/11/24 06:19 IV 15 mls/hr .Q48H SOHAIL Administration Insulin Human Lispro 1 - 6 unit 01/11/24 07:30 Insulin Lispro 100 Unit/Ml Insuln.Pen SC Q4H PRN PRN BG>/= 180, SEE PROTOCOL Protocol Scopolamine HBr 1 patch 01/11/24 07:30 01/11/24 06:20 Scopolamine 1mg/72hr Patch TD 01/11/24 07:31 1 patch X1 ONE Administration Vancomycin HCl 1,000 mg 01/11/24 07:30 Vancomycin Iv 1,000 Mg/20 Ml Vial IV X1 SOHAIL PFSH Medical History (Updated 12/28/23 @ 08:47 by Judy Osorio) History of stress test Lives alone Wears glasses Wears dentures Cancer Walker as ambulation aid Arthritis Bladder disease Low iron Fatty liver High cholesterol Syncope Difficulty swallowing History of hiatal hernia History of ulceration Asthma Shortness of breath on exertion Leg cramps History of pain when walking History of edema History of echocardiogram Hypokalemia Diabetes mellitus Vitamin D deficiency Spondylosis without myelopathy or radiculopathy, lumbar region RLS (restless legs syndrome) Renal cysts, acquired, bilateral Post-menopausal Lumbar foraminal stenosis DJD (degenerative joint disease), lumbar Insomnia Idiopathic peripheral neuropathy Hypoglycemia Hypertensive CKD (chronic kidney disease) Hypertension GERD (gastroesophageal reflux disease) Essential tremor Diverticulitis CKD (chronic kidney disease) stage 3, GFR 30-59 ml/min Anxiety Home Medications ?Medication ?Instructions ?Recorded ?Last Taken ?Type alendronate 70 mg tablet (Fosamax) 70 mg PO MO 04/29/17 01/04/24 History aspirin 81 mg tablet,delayed 81 mg PO DAILY@0800 04/29/17 01/06/24 History release atorvastatin 10 mg tablet 10 mg PO QHS 04/29/17 01/10/24 History cyanocobalamin (vitamin B-12) 500 500 mcg PO QWEEK 04/29/17 01/09/24 History mcg tablet (Vitamin B-12) hydroxyzine HCl 25 mg tablet 25 mg PO TID PRN for rash 04/29/17 01/11/24 History latanoprost 0.005 % eye drops 1 drp QHS 04/29/17 01/10/24 History omega 3-dha 60 mg-epa 90 mg-fish 500 mg PO DAILY 04/29/17 01/10/24 History oil 500 mg capsule, delayed release (Fish Oil) omeprazole 20 mg capsule,delayed 20 mg PO DAILY 04/29/17 01/11/24 History release ascorbic acid (vitamin C) 1,000 mg 1 g PO DAILY 12/25/21 01/10/24 History capsule baclofen 10 mg tablet 10 mg PO BID 12/25/21 01/11/24 History cholecalciferol (vitamin D3) 1,250 1,250 mcg PO QWEEK 12/25/21 01/09/24 History mcg (50,000 unit) capsule cinnamon bark 500 mg capsule 1,000 mg PO DAILY 12/25/21 01/10/24 History diclofenac sodium 1 % topical gel 2 g topical TID PRN PRN pain 12/25/21 Unknown History diphenhydramine HCl 25 mg capsule 25 mg PO TID PRN allergy symptoms 12/25/21 Unknown History (Benadryl) ferrous sulfate 325 mg (65 mg 325 mg PO QWEEK 12/25/21 01/05/24 History iron) tablet (FeroSul) gabapentin 100 mg capsule 300 mg PO TID 12/25/21 01/11/24 History (Neurontin) garlic 300 mg capsule 300 mg PO DAILY 12/25/21 01/10/24 History montelukast 10 mg tablet 10 mg PO QHS sinus drainage 12/25/21 01/11/24 History vitamin E (dl, acetate) 180 mg 180 mg PO DAILY 12/25/21 01/10/24 History (400 unit) capsule zinc gluconate 50 mg tablet 50 mg PO DAILY 12/25/21 01/10/24 History brimonidine 0.1 % eye drops 1 drp ophthalmic (eye) TID 12/31/21 01/10/24 History (Alphagan P) hydrocodone-acetaminophen 5-325mg 1 tab PO BID 04/22/22 01/11/24 History 5mg-325mg potassium chloride 10 mEq 10 meq PO BID 08/02/22 01/10/24 History tablet,extended release(part/cryst) cranberry fruit concentrate 250 mg 250 mg PO BID 08/10/23 01/10/24 History chewable tablet (Azo Cranberry) fluticasone furoate 100 1 inh inhalation DAILY #60 ea 08/10/23 01/11/24 Rx mcg-vilanterol 25 mcg/dose inhalation powder (Breo Ellipta) pregabalin 150 mg capsule 150 mg PO TID 08/10/23 01/11/24 History albuterol sulfate 90 mcg/actuation 2 puff inhalation Q4H PRN 11/02/23 Unknown Rx aerosol inhaler shortness of breath or wheezing #8.5 grams fluticasone propionate 50 1 spray intranasal DAILY 12/28/23 01/10/24 History mcg/actuation nasal spray,suspension olmesartan 40 mg-amlodipine 10 1 tab PO DAILY 12/28/23 01/09/24 History mg-hydrochlorothiazide 12.5 mg tablet primidone 50 mg tablet 100 mg PO BID 12/28/23 01/11/24 History trazodone 50 mg tablet 50 mg PO .QHS PRN PRN sleep 12/28/23 Unknown History Allergy/AdvReac Type Severity Reaction Status Date / Time adhesive tape Allergy Rash Verified 01/11/24 05:51 latex Allergy Rash Verified 01/11/24 05:51 raw vegetable Allergy Diarrhea Verified 01/11/24 05:51 soap Allergy Rash Verified 01/11/24 05:51 aspirin AdvReac Unknown GI upset Verified 01/11/24 05:51 watermelon AdvReac Unknown 'sick' Verified 01/11/24 05:51 Surgical History (Updated 12/28/23 @ 08:46 by Judy Osorio) History of esophagogastroduodenoscopy (EGD) Hx of colonoscopy Hx of right cataract extraction Hx of left cataract extraction Hx of tonsillectomy Hx of appendectomy History of hysterectomy H/O arthroscopy of knee History of knee replacement History of bladder surgery Social History Smoking Status: Never smoker Review of Systems (Anesthesia) ROS Narrative System reviewed and no additional complaints, except as documented.
--- NOTE | 2024-01-11 07:30 | SHO_PTH ---
PATIENT: NICOLASA HOUSE LOC: MS3 U#:[id number] AGE/SX: 78/F ROOM: [facility] RE01/11/[address]: Dr. Lester Blankenship MD : 1945 BED: 1 DIS: 01/13/2024 SPEC #: [id number] RECD: 01/11/24 10:21 STATUS: TATE DE SOUZAEthel #: [id number] DANIEL: 01/11/24 07:[address]: Lester Blankenship DEPT: SURGICAL PATHOLOGY RECD BY: Keerthi Temple ENTERED: 01/11/24 12:04 SP TYPE: HUMERUS OTHR DR: Dr. Meli Cruz, DO Tissues: Humerus, NOS Procedures: Decalcification bone/plaque Surgery Specimen Level IV HEADER OPERATION: Right reverse total shoulder replacement PRE-OP DIAGNOSIS: Right shoulder osteoarthritis TISSUE SUBMITTED: Right shoulder; humeral head MICROSCOPIC DIAGNOSIS Bone and tissue right shoulder, total shoulder replacement/resection: Humeral head with degenerative osteoarthritic changes. A fragment of dense fibroconnective tissue with reactive changes. DARA. 01/17/2024 MICROSCOPIC DESCRIPTION Slides are reviewed. GROSS DESCRIPTION Received is one container labeled with the patient's name and designated bone and soft tissue. The specimen consists of a humeral head measuring 5.0 x 4.5 x 1.5 cm. The articular surface shows areas of erosion, eburnation and osteophyte formation. Also received are a piece of chatterjee indurated tissue measuring in aggregate 6.5 x 1.0 x 0.4 cm. Dianeticist sections are submitted in two cassettes as follows: 1 - soft tissue, 2 - humeral head after decalcification. / SJ: 01/11/2024 TC:5 [facility]: [id number]
[2024-01-11] MEDS: Cefazolin 2 GM in 0.9% Normal Saline (100mL Bag) 100 ML IV ×3 (07:35→22:08)
[2024-01-11] MEDS: TXA 1000mg in NS100 100ml (IVPB at Closure) 660 MG IV (07:50)
[2024-01-11] MEDS: dexAMETHasone 10 MG/ML Vial IV (07:50)
[2024-01-11] MEDS: Vancomycin IV 1,000 MG/20 ML Vial 1000 MG IV (08:37)
--- NOTE | 2024-01-11 09:20 | RAD_ITS ---
PROCEDURE: Reverse right shoulder replacement. DATE OF EXAMINATION: January 11, 2024. INDICATION: Female, 78 years old. Right shoulder replacement. FLUOROSCOPY TIME (if supplied): (12.2 seconds) minutes/seconds. 2.66 mGy. 2 images were submitted. RAD/Shoulder min 2 Views IMPRESSION: Intraoperative imaging provided for left reverse shoulder replacement. Electronically Signed: Anand Keller MD at 10:21 EDT ,
[2024-01-11] MEDS: TXA 1000mg in NS100 100ml (IVPB at Incision) 660 MG IV (09:30)
--- NOTE | 2024-01-11 09:41 | OP.PCM_ITS ---
Problems Associated Problem List Diagnoses (1) Primary osteoarthritis of right shoulder: Report of Operation Date of Procedure: 01/11/24 Pre-Operative Diagnosis: Right shoulder OA Post-Operative Diagnosis: same Surgery/Procedure Performed:: Right reverse total shoulder arthroplasty and biceps tenodesis Surgeon: Lester Blankenship Type of Anesthesia: Block,Regional and General Anesthesiologist: Darnell Hampton Estimated Blood Loss (mL): 100 Description of Procedure: Patient brought to the operating room theater. Placed supine on the beachchair positioner. 2 g IV Ancef and 1 g IV tranexamic acid administered prior to the start of the procedure. General anesthesia induced. Patient sat up at a 45 degree angle. Arm positioner used to the patient's right side. Upper extremity prepped and draped in the usual sterile fashion allowing over 3 minutes drying time prior to draping. All bony prominences padded. SCDs on the legs. Preoperative timeout performed to confirm the site patient and the surgery. Began by making a standard deltopectoral incision just lateral to the coracoid process. Carried dissection down through skin and subcutaneous tissue achieved meticulous hemostasis. Developed and retracted and protected the cephalic vein laterally. Identified the conjoined tendon retracted that medially xillary nerve palpated this protected it felt intact. I followed the long head of the biceps through the rotator interval to identify the lesser and greater tuberosity. I removed the long head of the biceps and tenodesed the distal fragment to the superior aspect of the pectoralis major and released a small amount to the upper border pectoralis major tendon. I made a lesser tuberosity osteotomy thin bone wafer. I used #2 FiberWire sutures to tack the subscapularis at the tendon bone junction. I then made my humeral cut at 30 degrees of retroversion using extramedullary guide. I sized this to a size 2 stem insert of the pin and then reamed over the pin for a size 2 reamer. Good merritt. Identified the canal. Inserted the size 2 broach this achieved good purchase. I then prepared the glenoid. I remove the labrum circumferentially from around the glenoid and slightly released the triceps attachment from inferiorly again being cautious of the axillary nerve. Using preoperative templating the size 25 mm baseplate. This was approximately 15 mm from the inferior surface and 15 mm from the anterior surface of the glenoid. Then placed the guidepin, slight davis perior and anterior direction. I reamed over the guidewire using the central reamer, then I drilled the central screw and then tapped. This measured 30 mm long central screw. I selected the 25 mm size baseplate with a 30 mm long screw. I inserted this in an appropriate depth and version which achieved good purchase in the glenoid. I then drilled the anterior and posterior compression screws. Both 18mm long. This achieved good fixation. I then drilled the other 2 locking screws at 12 and 6 oclock. Superior screw 38mm toward base of coracoid. This achieved good purchase of the baseplate. I then used pulse lavage to clean the baseplate and then impacted a 36 mm glenosphere, good fixation with the screw. I then turned my attention back to the humeral side. I trialed with a #2 humeral component and a neutral +0 mm polyethylene component. This was good reduction very solid normal tension on the conjoined tendon. No impingement and full range of motion. I removed the trial components. Drilled 2 tunnels laterally for the subscapularis LT osteotomy repair. Passed sutures around the component and then through the drill holes. I selected the final size components the [place] Tornier perform reverse humeral 2+ component and impacted this into place, with +0mm polyethylene tray. Reduced and again trial perform and felt to be stable no impingement. I thoroughly irrigated vancomycin powder placed around the implant. Xray taken intraoperatively to confirm proper reduction and placement as well as size of the implants. Subcutaneous tissue closed with 2-0 Vicryl suture suture and skin with 3-0 Monocryl. Skin cleaned with wet dry dressing. Skin cleaned and Steri-Strips applied followed by silver Mepilex dressing and an abduction pillow sling for the upper extremity. Patient woken up from a general anesthetic transferred off the operating table and taken to postanesthetic care unit in stable condition. All sponge needle instrument counts were correct no complications plan for the patient likely admitted to observation and hopefully discharge home in the next 1 to 2 days without proper pain control. cpt 29252 and 25264? Grafts/Implants Used: daniele / tornier reverse perform Complications none Admit VTE Documentation VTE Present on Admission: No VTE Mechan Device Prophylaxis: SCD's VTE Pharm Prophylaxis ordered?: No Reason prophylaxis not ordered:: Treatment Not Indicated Procedures Musculoskeletal [id number]-29xxx: Other Procedure See Report
--- NOTE | 2024-01-11 10:02 | PCM.POST.ANE ---
Anesthesia: Postop Eval I Current Vital Signs Temperature: 96.7 F Pulse Rate: 75 Blood Pressure: 156/70 Respiratory Rate: 14 Pulse Ox: 93 Oxygen Delivery Method: Nasal Cannula Oxygen Flow Rate (L/min): 2 Assessment Airway patent: Yes Spontaneous unlabored respirations: Yes Mental status: Awake and Calm nausea: No Vomiting: No Anesthesia Complication: No Fluid Hydration Crystalloid volume administer (ml): 1,000 Total IV fluid infused: 1,000 Progress Note Anesthesia document: Postop Eval 1 completed: Yes
--- NOTE | 2024-01-11 10:43 | POSTOPAN2_ITS ---
Anesthesia Postop Eval I Sum Postop Eval Completion status Anesthesia document: Postop Eval 1 completed: Yes Anesthesia Postop Eval I Summary Anesthesia Postop Eval I Summary: Anesthesia Postop Eval I: Assessment Summary Airway patent Yes 01/11/24 10:02 PIPE ORGAN [email or web address] Spontaneous unlabored Yes 01/11/24 10:02 PIPE ORGAN [email or web address] respirations Mental status Awake,Calm 01/11/24 10:02 PIPE ORGAN [email or web address] nausea No 01/11/24 10:02 PIPE ORGAN [email or web address] Vomiting No 01/11/24 10:02 PIPE ORGAN [email or web address] Anesthesia Postop Eval I: Fluid Summary Crystalloid volume administer 1,000 01/11/24 10:02 PIPE ORGAN [email or web address] (ml) Colloids volume administered ( ml) Blood Product volume administered (ml) Total IV fluid infused 1,000 01/11/24 10:02 PIPE ORGAN [email or web address] Anesthesia Postop Eval I: Summary Notes Anesthesia Complication No 01/11/24 10:02 PIPE ORGAN [email or web address] Anesthesia Complication Comment: Post-operative progress note Anesthesia: Postop Eval II Evaluation Mental status: Awake and Calm Pain Level: 1 nausea: No Vomiting: No Complications Anesthesia Complication: No
--- NOTE | 2024-01-11 10:43 | PCM.POSTANE2 ---
Anesthesia Postop Eval I Sum Postop Eval Completion status Anesthesia document: Postop Eval 1 completed: Yes Anesthesia Postop Eval I Summary Anesthesia Postop Eval I Summary: Anesthesia Postop Eval I: Assessment Summary Airway patent Yes 01/11/24 10:02 SOFTWARE SALES [email or web address] Spontaneous unlabored Yes 01/11/24 10:02 SOFTWARE SALES [email or web address] respirations Mental status Awake,Calm 01/11/24 10:02 SOFTWARE SALES [email or web address] nausea No 01/11/24 10:02 SOFTWARE SALES [email or web address] Vomiting No 01/11/24 10:02 SOFTWARE SALES [email or web address] Anesthesia Postop Eval I: Fluid Summary Crystalloid volume administer 1,000 01/11/24 10:02 SOFTWARE SALES [email or web address] (ml) Colloids volume administered ( ml) Blood Product volume administered (ml) Total IV fluid infused 1,000 01/11/24 10:02 SOFTWARE SALES [email or web address] Anesthesia Postop Eval I: Summary Notes Anesthesia Complication No 01/11/24 10:02 SOFTWARE SALES [email or web address] Anesthesia Complication Comment: Post-operative progress note Anesthesia: Postop Eval II Evaluation Mental status: Awake and Calm Pain Level: 1 nausea: No Vomiting: No Complications Anesthesia Complication: No
--- NOTE | 2024-01-11 13:31 | SUR.PHASEII ---
CALLED FOR TRANSPORT AT 4600
--- NOTE | 2024-01-11 13:33 | SUR.PHASEII ---
PT VOIDED AT 1315 IN BATHROOM WITH NURSE ASSIST AND WALKER
[2024-01-11] MEDS: HYDROcodone Bitartrate/Apap 5/325 Tablet PO (17:37)
--- NOTE | 2024-01-11 21:05 | PCM.CONS.GEN ---
Assessment & Plan Assessment/Plan (1) Essential hypertension: (2) Hyperlipidemia: QUALIFIERS: Hyperlipidemia type: unspecified Qualified Code(s): E78.5 - Hyperlipidemia, unspecified (3) Diabetes mellitus: QUALIFIERS: Diabetes mellitus type: type 2 Diabetes mellitus fpc insulin use: without technician terminal and repeater use Diabetes mellitus complication status: without complication Qualified Code(s): E11.9 - Type 2 diabetes mellitus without complications (4) Morbid obesity with BMI of 40.0-44.9, adult: (5) Fatty liver: PLAN: Plan 1. Right Reverse Total Shoulder Arthroplasty POD #0 with patient requesting her home medications triggering hospitalist consultation for medical management - Continue current regimen with MAR now completed. 2. Essential hypertension - Restart home regimen plus give prn IV Hydralazine for systolic blood pressure > 160 mmHg. 3. Hyperlipidemia - Continue statin. 4. DM-2; of unknown control - ADA diet. Patient already on SSI. Check HgbA1c to objectively evaluate quality of diabetic control. 5. Morbid obesity; with BMI of 44 this admission plus fatty liver disease - Weight loss will be recommended. Check TSH. This complicates her case and may hamper her recovery. 6. CKD; stage III - Stable. Check labs in AM to ensure continued stability. 7. History of asthma - Stable with no evidence of flare. Give prn nebulizers. 8. Idiopathic peripheral neuropathy - Resume Gabapentin and Lyrica as previous. 9. Essential tremor - Continue Primidone at current dose. 10. RLS - Stable. 11. Glaucoma - Resume eye drops as previous. 12. History of cataract surgery - Noted. 13. History of colonic diverticulosis - Noted. 14. History of bladder tumor (2017); s/p bladder surgery - Noted. 15. Depression with anxiety - Resume current regimen. 16. GERD - Restart PPI. 17. Osteoporosis; with history of vitamin D deficiency - Stable. Continue vitamin D supplementation. 18. OA; with history of Left TKR (2017) plus lumbar foraminal stenosis and spondylosis without myelopathy or radiculopathy - Give Tylenol prn. 19. DVT prophylaxis - SCD's placed by orthopedist. Orthopod will also decide on future DVT prophylaxis regimen. Total time: Approximately 35 minutes. HPI Consult Data Date of Consult: 01/11/24 HPI Narrative Reason for Consultation: Medical Management. HPI Narrative: NICOLASA HOUSE, is a 78 F with a past medical history of essential hypertension, hyperlipidemia, DM-2; of unknown control, morbid obesity; with BMI of 44 this admission, fatty liver disease, CKD; stage III, history of asthma, idiopathic peripheral neuropathy, essential tremor, RLS, glaucoma, history of cataract surgery, history of colonic diverticulosis, history of bladder tumor (2017); s/p bladder surgery, depression with anxiety, GERD, osteoporosis; with history of vitamin D deficiency and OA; with history of Left TKR (2017) plus lumbar foraminal stenosis and spondylosis without myelopathy or radiculopathy who was admitted to the orthopedic service of Dr. Blankenship earlier today with patient having undergone a Right Reverse Total Shoulder Arthroplasty POD #0 with patient requesting her home medications triggering hospitalist consultation for medical management. Ms. House denies active complaints other than wanting her routine medications and she states her pain is relatively well controlled. Her vital signs are stable and her labs are unremarkable plus her MAR has now been completed so she can receive her routine medications. Thank you for allowing us to participate in the care of your patient. [facility] Medical History (Updated 01/11/24 @ 21:[address] Landon Camacho, DO) History of stress test Lives alone Wears glasses Wears dentures Cancer Walker as ambulation aid Arthritis Bladder disease Low iron Fatty liver High cholesterol Syncope Difficulty swallowing History of hiatal hernia History of ulceration Asthma Shortness of breath on exertion Leg cramps History of pain when walking History of edema History of echocardiogram Hypokalemia Diabetes mellitus Vitamin D deficiency Spondylosis without myelopathy or radiculopathy, lumbar region RLS (restless legs syndrome) Renal cysts, acquired, bilateral Post-menopausal Lumbar foraminal stenosis DJD (degenerative joint disease), lumbar Insomnia Idiopathic peripheral neuropathy Hypoglycemia Hypertensive CKD (chronic kidney disease) Hypertension GERD (gastroesophageal reflux disease) Essential tremor Diverticulitis CKD (chronic kidney disease) stage 3, GFR 30-59 ml/min Anxiety Home Medications ?Medication ?Instructions ?Recorded ?Last Taken ?Type alendronate 70 mg tablet (Fosamax) 70 mg PO MO 04/29/17 01/04/24 History aspirin 81 mg tablet,delayed 81 mg PO DAILY@0800 04/29/17 01/06/24 History release atorvastatin 10 mg tablet 10 mg PO QHS 04/29/17 01/10/24 History cyanocobalamin (vitamin B-12) 500 500 mcg PO QWEEK 04/29/17 01/09/24 History mcg tablet (Vitamin B-12) hydroxyzine HCl 25 mg tablet 25 mg PO TID PRN for rash 04/29/17 01/11/24 History latanoprost 0.005 % eye drops 1 drp QHS 04/29/17 01/10/24 History omega 3-dha 60 mg-epa 90 mg-fish 500 mg PO DAILY 04/29/17 01/10/24 History oil 500 mg capsule, delayed release (Fish Oil) omeprazole 20 mg capsule,delayed 20 mg PO DAILY 04/29/17 01/11/24 History release ascorbic acid (vitamin C) 1,000 mg 1 g PO DAILY 12/25/21 01/10/24 History capsule baclofen 10 mg tablet 10 mg PO BID 12/25/21 01/11/24 History cholecalciferol (vitamin D3) 1,250 1,250 mcg PO QWEEK 12/25/21 01/09/24 History mcg (50,000 unit) capsule cinnamon bark 500 mg capsule 1,000 mg PO DAILY 12/25/21 01/10/24 History diclofenac sodium 1 % topical gel 2 g topical TID PRN PRN pain 12/25/21 Unknown History diphenhydramine HCl 25 mg capsule 25 mg PO TID PRN allergy symptoms 12/25/21 Unknown History (Benadryl) ferrous sulfate 325 mg (65 mg 325 mg PO QWEEK 12/25/21 01/05/24 History iron) tablet (FeroSul) gabapentin 100 mg capsule 300 mg PO TID 12/25/21 01/11/24 History (Neurontin) garlic 300 mg capsule 300 mg PO DAILY 12/25/21 01/10/24 History montelukast 10 mg tablet 10 mg PO QHS sinus drainage 12/25/21 01/11/24 History vitamin E (dl, acetate) 180 mg 180 mg PO DAILY 12/25/21 01/10/24 History (400 unit) capsule zinc gluconate 50 mg tablet 50 mg PO DAILY 12/25/21 01/10/24 History brimonidine 0.1 % eye drops 1 drp ophthalmic (eye) TID 12/31/21 01/10/24 History (Alphagan P) hydrocodone-acetaminophen 5-325mg 1 tab PO BID 04/22/22 01/11/24 History 5mg-325mg potassium chloride 10 mEq 10 meq PO BID 08/02/22 01/10/24 History tablet,extended release(part/cryst) cranberry fruit concentrate 250 mg 250 mg PO BID 08/10/23 01/10/24 History chewable tablet (Azo Cranberry) fluticasone furoate 100 1 inh inhalation DAILY #60 ea 08/10/23 01/11/24 Rx mcg-vilanterol 25 mcg/dose inhalation powder (Breo Ellipta) pregabalin 150 mg capsule 150 mg PO TID 08/10/23 01/11/24 History albuterol sulfate 90 mcg/actuation 2 puff inhalation Q4H PRN 11/02/23 Unknown Rx aerosol inhaler shortness of breath or wheezing #8.5 grams fluticasone propionate 50 1 spray intranasal DAILY 12/28/23 01/10/24 History mcg/actuation nasal spray,suspension olmesartan 40 mg-amlodipine 10 1 tab PO DAILY 12/28/23 01/09/24 History mg-hydrochlorothiazide 12.5 mg tablet primidone 50 mg tablet 100 mg PO BID 12/28/23 01/11/24 History trazodone 50 mg tablet 50 mg PO .QHS PRN PRN sleep 12/28/23 Unknown History Allergy/AdvReac Type Severity Reaction Status Date / Time adhesive tape Allergy Rash Verified 01/11/24 05:51 latex Allergy Rash Verified 01/11/24 05:51 raw vegetable Allergy Diarrhea Verified 01/11/24 05:51 soap Allergy Rash Verified 01/11/24 05:51 aspirin AdvReac Unknown GI upset Verified 01/11/24 05:51 watermelon AdvReac Unknown 'sick' Verified 01/11/24 05:51 Surgical History History of esophagogastroduodenoscopy (EGD) Hx of colonoscopy Hx of right cataract extraction Hx of left cataract extraction Hx of tonsillectomy Hx of appendectomy History of hysterectomy H/O arthroscopy of knee History of knee replacement History of bladder surgery Social History Smoking Status: Never smoker ROS ROS Narrative Review f Systems: Constitutional: Patient denies fever or chills. Eyes: Patient denies changes in vision or discharge from eyes. ENT: Patient denies runny nose, sore throat or ear pain. CV: Patient denies chest pain, palpitations or heart racing. Resp: Patient denies SOB or cough. GI: Patient denies abdominal pain, nausea, vomiting or diarrhea. : Patient denies dysuria, hematuria or urinary frequency. MSK: Patient admits to Right shoulder pain with sling in place. Skin: Patient denies rash, abscess or jaundice. Psych: Patient denies symptoms of uncontrolled depression or anxiety. Neuro: Patient denies headache, paresthesias or focal neurologic deficits. Hematology: Patient denies easy bleeding or easy bruising. Endocrinology: Patient denies polyuria, polydipsia or polyphagia. 14 point ROS otherwise negative except for positives noted above in HPI. Physical Exam Const alert, oriented x3 and no apparent distress Constitutional Narrative: Patient is morbidly obese with RUE in sling. General Appearance: cooperative HEENT normocephalic, head/scalp atraumatic, hearing grossly normal bilaterally and moist oral mucous membranes Eyes PERRL and EOMs intact bilaterally Neck no lymphadenopathy and supple Resp normal respiratory effort, no retractions, no use of accessory muscles and clear to auscultation bilaterally Cardio regular rate and regular rhythm GI normal to inspection, nondistended, normoactive bowel sounds, soft to palpation, non-tender and non-distended GI Narrative: Morbidly obese. Extremity Extremity Narrative: RUE in sling. Skin Skin Narrative: Patient has no evidence of rash, abscess or jaundice. Neuro oriented x3, CN's II-XII intact bilaterally, moves all extremities, no focal motor deficits and no sensory deficits noted Sensorium / Orientation: awake, alert, oriented to person, oriented to place and oriented to time Speech: speech normal Psych affect normal Medical Records Data Attestation: I reviewed the patient's medical records Lab / Micro Data Attestation: I reviewed the patient's lab results. 01/02/24 14:17 01/02/24 14:17 Labs: Laboratory Results - last 24 hr 01/11/24 06:08: POC Glucose 90 Imaging Radiology Impression Shoulder X-Ray 01/11/24 09:20 IMPRESSION: Intraoperative imaging provided for left reverse shoulder replacement. Electronically Signed: Anand Keller MD at 10:21 EDT , Charges/Coding Visit Charges Office Visits / Consults: [id number] IP Consult L2
[2024-01-11] MEDS: Pregabalin 75 MG Capsule 150 MG PO (21:57)
[2024-01-11] MEDS: Atorvastatin Calcium 10 MG Tablet PO (21:57)
[2024-01-11] MEDS: Baclofen 10 MG Tablet PO (21:57)
[2024-01-11] MEDS: Montelukast 10 MG Tablet PO (21:58)
[2024-01-11] MEDS: traZODone 50 MG Tablet PO (22:08)
[2024-01-11] MEDS: hydrOXYzine PAM 25 MG Capsule PO (22:17)
[2024-01-11] MEDS: Primidone 50 MG Tablet 100 MG PO (22:47)
[2024-01-11] MEDS: Latanoprost 0.005% 1 Bottle 1 DRP OPHTHALMIC (22:47)
[2024-01-12] VITALS (10 sets, daily range): BP systolic 115–157; BP diastolic 53–98; PULSE 78–108; RESP 18; TEMP 36.3–37.5; O2SAT 93–97
[2024-01-12] MEDS: HYDROcodone Bitartrate/Apap 5/325 Tablet PO ×4 (00:18→21:57)
[2024-01-12] MEDS: Cefazolin 2 GM in 0.9% Normal Saline (100mL Bag) 100 ML IV ×2 (06:12→15:47)
[2024-01-12] MEDS: Pregabalin 75 MG Capsule 150 MG PO ×3 (06:12→21:56)
[2024-01-12 06:52] LABS: Absolute Lymphocyte Count 1.15 X10^3/uL (0.83-4.51); Absolute Neutrophil Count 7.9 X10^3/uL (2.0-7.7); Basophil# 0.02 X10^3/uL; Basophil% 0.2 % (0-1); Hematocrit 34.2 % (37-47); Hemoglobin 11.1 g/dL (12.0-15.0); Lymphocyte # 1.15 X10^3/ul (0.83-4.51); Lymphocyte % 11.4 % (19-41); Mean Corp Hgb Conc 32.5 g/dL (32-36); Mean Corpuscular Volume 86.4 fL (81-99); Mean Platelet Vol. 10.8 fl (6.2-12.0); Monocyte% 8.9 % (0-10); NRBC Flagged by Analyzer 0 % (0-5); Neutrophil # 7.94 X10^3/uL (2.7-7.7); Platelet Count 181 K/mm3 (150-450); RBC Distribution Width CV 13.7 % (11.6-14.6); RBC Distribution Width SD 43.3 fl (35.1-43.9); Red Blood Count 3.96 M/mm3 (4.2-5.4); White Blood Count 10.1 K/mm3 (4.4-11.0)
[2024-01-12 07:35] LABS: ALB/GLOB Ratio 0.8 RATIO (0.9-2.4); AST(SGOT) 18 U/L (15-37); Alanine Aminotransfer ALT/SGPT 17 U/L (13-56); Albumin, Serum 2.7 g/dL (3.2-5.0); Alkaline Phosphatase 81 U/L (45-117); Anion Gap 6 (5-15); BUN 19 mg/dL (7-18); BUN/Creat Ratio 25.6 RATIO (10-20); Calcium,Total 8.2 mg/dL (8.5-10.1); Chloride 105 mmol/L (98-107); Creatinine, Serum 0.74 mg/dL (0.55-1.02); EST Glomerular Filtration Rate 80 mL/min (>60); Est Glom Filt Rate - Afr Amer 97 mL/min (>60); Estimated Creatinine Clearance 65.22 ml/min; Globulin 3.4 g/dL (2.2-4.2); Glucose 149 mg/dL (74-106); Potassium 3.8 mmol/L (3.5-5.1); Protein, Total 6.1 g/dL (6.4-8.2); Sodium Level 138 mmol/L (136-145); Thyroid Stim Hormone (TSH) 0.518 uIU/mL (0.358-3.740)
[2024-01-12] MEDS: Vitamin E 400 UNITS Capsule PO (07:40)
[2024-01-12] MEDS: Potassium Chloride Oral Tablet 10 MEQ PO ×2 (07:40→17:08)
[2024-01-12] MEDS: Baclofen 10 MG Tablet PO ×2 (07:40→21:56)
[2024-01-12] MEDS: Primidone 50 MG Tablet 100 MG PO ×2 (07:40→17:08)
[2024-01-12] MEDS: Pantoprazole Sodium 20 MG Tablet PO (07:40)
[2024-01-12] MEDS: Aspirin E.C. 81 MG Tablet PO (07:41)
[2024-01-12] MEDS: amLODIPine 10 MG Tablet PO (07:41)
[2024-01-12] MEDS: Ascorbic Acid 500 MG Tablet 1000 MG PO (07:41)
[2024-01-12] MEDS: hydroCHLOROthiazide 12.5mg 12.5 MG PO (07:41)
[2024-01-12] MEDS: Zinc Sulfate 50 mg zinc (220 mg) ORAL capsule PO (07:42)
[2024-01-12] MEDS: Fluticasone 0.05% 1 SPRAY NASAL.SRY NASAL (07:42)
[2024-01-12] MEDS: Losartan Potassium 100 MG Tablet PO (07:42)
[2024-01-12] MEDS: Albuterol 2.5 MG/3 ML VIAL.NEB. INHALATION ×3 (07:51→20:17)
[2024-01-12] MEDS: Budesonide Respules 0.5 MG/2 ML AMPUL.NEB. INHALATION ×2 (07:51→20:17)
[2024-01-12 08:07] LABS: Hemoglobin A1c 5.2 % (3.8-5.6)
--- NOTE | 2024-01-12 10:32 | CASEMGMT ---
DWAYNE LUU Assessment: Face to Face with pt for initial transition planning/care coordination assessment. DWAYNE LUU introduced self and role at [facility], pt voices understanding and consents to assessment. Pt is A&O x4 and answers all questions appropriately at this time. Pt sitting up in chair in no distress, just finished working with therapy. Report received from therapy. Care providers, pharmacy, and demographics verified/updated. Admitting Dx: R reverse total shoulder replacement Strata Score: 2 PCP:Nancy Specialists:roman Blankenship; roman Lewis; arie Rhoades Preferred Pharmacy: [facility] Insurance: Tracy [facility] Dual Advantage, [facility] Prescription Benefit: yes LNOK: Mendez/Kathy Patterson, brother; Roberto Esteban, sig other Living Arrangements: Pt lives alone in an apt with an elevator to enter. Pt reports she is I in ADL/IADL but has difficulty with them and they are hard to do. Transportation: Pt drives self. DME:toilet rails, shower chair, 2 canes, BGM with sufficient supply of strips and lancets HHC/SNF: Pt denies. Pt states she would like further rehab at [facility] prior to returning home. She is aware that the SW will be in to discuss this with her. Updated SW. Pt states no further concerns/needs. CM to follow. Advised pt to ask CM if any further question/concerns/needs arise, voices understanding. Pt Goal: Rehab at [facility] Plan: SNF [facility] RICE CM
--- NOTE | 2024-01-12 11:02 | CASEMGMT ---
Discharge Planning A list of?SNF providers including quality and resource use data and consistent with the patient's preferred geographic region, medical needs, and insurance network was created in [facility] Guide.? This list was provided to the SW. Odalys Hernández Discharge Planning Asst.
--- NOTE | 2024-01-12 11:42 | CASEMGMT ---
Addendum entered by Loan Agarwal 01/12/24 12:40: Social Work [facility] is able to accept pt. Cliftonert is started at this time. SW updated pt and she is agreeable. Plan: [facility], pending ALDO Donis Original Note: Social Work SW met with pt and introduced self and role of SW. SW spoke with pt regarding discharge plan and that therapy is recommending short term SNF prior to return home alone. Pt is agreeable with SNF placement. A list of SNF providers including quality and resource use data and consistent with the patient?s preferred geographic region, medical needs, and insurance network were provided from the [facility]Port Guide. Pt with difficulty making a decision. SW offered to call pt's significant other to help with decision making and pt agreeable. Phone call to Roberto and jaleesa on speaker phone with pt and SW in room. After review of options and discussion of SNF, pt and Roberto determine preferred provider is [facility] and second choice is [facility]. Referral made and TCU is unable to accept pt. HUBER updated pt and Roberto. DORI bar assistant updated and to send referral to [facility]. Plan: [facility], pending acceptance and ALDO Donis
--- NOTE | 2024-01-12 11:45 | CASEMGMT ---
Addendum entered by Odalys Hernández 01/12/24 12:27: [facility] accepted and will submit for precert. Odalys Hernández DC Planning Asst. Original Note: Discharge Planning Referral sent via [facility] to [facility]. Odalys Hernández DC Planning Asst.
[2024-01-12] MEDS: Ferrous Sulfate 325 MG Tablet PO (12:46)
--- NOTE | 2024-01-12 14:27 | CASEMGMT ---
Social Work Precert has been obtained for pt to admit to [facility]. Precert is good through 01/17 and pt can admit when medically ready. Plan: [facility], when medically ready ALDO Mcgraw
--- NOTE | 2024-01-12 15:21 | CASEMGMT ---
Met with patient to complete GARZA form. GARZA form explained to patient who voiced understanding and signed form. Original form placed in pt?s chart and copy provided to patient. Odalys Heránndez, Discharge Planning Asst
--- NOTE | 2024-01-12 16:31 | PCM.PN.ORT ---
Subjective Subjective POD 1 R rtsa. doing well, had some pain last night but now it has settled down. Objective Data Objective Data Vital Signs: Vital Signs Temp Pulse Resp BP Pulse Ox O2 Del Method O2 Flow Rate 98.7 F 94 18 157/98 H 95 Room Air 1 01/12/24 15:41 01/12/24 15:41 01/12/24 15:41 01/12/24 15:41 01/12/24 15:41 01/12/24 15:41 01/12/24 10:53 Oxygen Flow Rate (L/min) 1 Oxygen Delivery Method Room Air Weight: 240 lb 4.862 oz Body Mass Index (BMI) 43.9 Intake & Output: Intake and Output for Last 24 Hours 01/10/24 01/11/24 01/12/24 23:59 23:59 23:59 Intake Total 1806 / 1806 2510 / 2510 Output Total 600 / 600 1450 / 1450 Balance 1206 / 1206 1060 / 1060 Lab / Micro Data Attestation: I reviewed the patient's lab results. 01/12/24 05:56 01/12/24 05:56 Labs: Laboratory Results - last 24 hr 01/12/24 05:56: WBC 10.1, RBC 3.96 L, Hgb 11.1 L, Hct 34.2 L, MCV 86.4, MCH 28.0, MCHC 32.5, RDW Std Deviation 43.3, RDW Coeff of Otoniel 13.7, Plt Count 181, MPV 10.8, Immature Gran % (Auto) 0.500, Neut % (Auto) 79.0 H, Lymph % (Auto) 11.4 L, Stephens % (Auto) 8.9, Eos % (Auto) 0.0, Baso % (Auto) 0.2, Absolute Neuts (auto) 7.9 H, Absolute Lymphs (auto) 1.15, Nucleated RBC % 0, Sodium 138, Potassium 3.8, Chloride 105, Carbon Dioxide 27.0, Anion Gap 6, BUN 19 H, Creatinine 0.74, Estim Creat Clear Calc 65.22, Est GFR (MDRD) Af Amer 97, Est GFR (MDRD) Non-Af 80, BUN/Creatinine Ratio 25.6 H, Glucose 149 H, Hemoglobin A1c 5.2, Calcium 8.2 L, Total Bilirubin 0.30, AST 18, ALT 17, Alkaline Phosphatase 81, Total Protein 6.1 L, Albumin 2.7 L, Globulin 3.4, Albumin/Globulin Ratio 0.8 L, TSH 0.518 Micro: Microbiology 01/02/24 14:17 Swab (Method) Nasal Screen MRSA/MSSA - Final Physical Exam Narrative drsg dry, shoulder soft, no bruising, nvi mru and ain/pin and ax nerve. hand warm well perfused strong radial pulse. Const alert, oriented x3 and no apparent distress Assessment & Plan Assessment/Plan (1) Primary osteoarthritis of right shoulder: PLAN: POD 1 right RTSA. doing well, pending SW for outpatient placement. ok for pendulums. keep incision dry, but ok to shower.
[2024-01-12] MEDS: Montelukast 10 MG Tablet PO (21:56)
[2024-01-12] MEDS: traZODone 50 MG Tablet PO (21:56)
[2024-01-12] MEDS: Atorvastatin Calcium 10 MG Tablet PO (21:56)
[2024-01-12] MEDS: Latanoprost 0.005% 1 Bottle 1 DRP OPHTHALMIC (21:57)
[2024-01-13] VITALS (7 sets, daily range): BP systolic 111–145; BP diastolic 63–83; PULSE 62–99; RESP 16–20; TEMP 36.3–37.3; O2SAT 93–96
[2024-01-13] MEDS: Pregabalin 75 MG Capsule 150 MG PO ×2 (06:28→13:27)
[2024-01-13] MEDS: HYDROcodone Bitartrate/Apap 5/325 Tablet PO ×3 (06:34→18:58)
[2024-01-13] MEDS: Albuterol 2.5 MG/3 ML VIAL.NEB. INHALATION (06:48)
[2024-01-13] MEDS: Budesonide Respules 0.5 MG/2 ML AMPUL.NEB. INHALATION (06:48)
--- NOTE | 2024-01-13 09:03 | CASEMGMT ---
Social Work Message left with Dr. Blankenship's office notifying that pt can discharge to [facility] when medically ready. Precert is good through 01/17. PASRR completed in [facility] for admission to SNF. Plan: [facility], when medically ready ALDO Mcgraw
[2024-01-13] MEDS: Losartan Potassium 100 MG Tablet PO (09:50)
[2024-01-13] MEDS: hydroCHLOROthiazide 12.5mg 12.5 MG PO (09:50)
[2024-01-13] MEDS: Zinc Sulfate 50 mg zinc (220 mg) ORAL capsule PO (09:50)
[2024-01-13] MEDS: Baclofen 10 MG Tablet PO (09:50)
[2024-01-13] MEDS: Ascorbic Acid 500 MG Tablet 1000 MG PO (09:50)
[2024-01-13] MEDS: Potassium Chloride Oral Tablet 10 MEQ PO ×2 (09:51→16:38)
[2024-01-13] MEDS: Aspirin E.C. 81 MG Tablet PO (09:51)
[2024-01-13] MEDS: amLODIPine 10 MG Tablet PO (09:51)
[2024-01-13] MEDS: Primidone 50 MG Tablet 100 MG PO (09:51)
[2024-01-13] MEDS: Pantoprazole Sodium 20 MG Tablet PO (09:51)
[2024-01-13] MEDS: Vitamin E 400 UNITS Capsule PO (09:51)
[2024-01-13] MEDS: Fluticasone 0.05% 1 SPRAY NASAL.SRY NASAL (09:52)
--- NOTE | 2024-01-13 14:16 | TREXTCAR_ITS ---
Diet Diet Order/Speech Therapy: 01/11/24 11:45 Diet: Regular - General Wound(s) R SHOULDER: Wound Type: Surgical Incision Problem/Diagnosis (1) Primary osteoarthritis of right shoulder: Status: Acute Code(s): M19.011 - Primary osteoarthritis, right shoulder Plan: POD 1 right RTSA. doing well, pending SW for outpatient placement. ok for pendulums. keep incision dry, but ok to shower. Allergies/Procedures Done in Hospital Allergies adhesive tape Allergy (Verified 01/11/24 05:51) Rash latex Allergy (Verified 01/11/24 05:51) Rash raw vegetable Allergy (Verified 01/11/24 05:51) Diarrhea Can only eat once a week soap Allergy (Verified 01/11/24 05:51) Rash aspirin Adverse Reaction (Unknown, Verified 01/11/24 05:51) GI upset watermelon Adverse Reaction (Unknown, Verified 01/11/24 05:51) 'sick' Type of Care/Length of Stay Estimated LOS: Convalescent Care Less Than 30 days Type of Care Needed: Skilled Rehab Potential: Good Prognosis: Good Additional Orders/Day of Discharge Day of Discharge: 01/13/24 Follow Up Care Please Follow Up With: Lester Blankenship MD When: 1 week Discharge Plan Admission Admit Date/Time: 01/11/24 09:52 Primary Reason for Your Visit: right RTSA Attending Provider: Lester Blankenship Primary Care Provider: Meli Cruz Consulting Providers: Manuelito Chapman; Landon Camacho Instructions Patient Instructions: Shoulder Replacement Surg Recovery Discharge Orders/Prescriptions Prescriptions: No Action ascorbic acid (vitamin C) 1,000 mg capsule 1 g PO DAILY baclofen 10 mg tablet 10 mg PO BID diclofenac sodium 1 % gel 2 g topical TID PRN PRN (Reason: pain) diphenhydramine HCl [Benadryl] 25 mg capsule 25 mg PO TID PRN (Reason: allergy symptoms) cholecalciferol (vitamin D3) 1,250 mcg (50,000 unit) capsule 1,250 mcg PO QWEEK ferrous sulfate [FeroSul] 325 mg (65 mg iron) tablet 325 mg PO QWEEK cinnamon bark 500 mg capsule 1,000 mg PO DAILY garlic 300 mg capsule 300 mg PO DAILY vitamin E (dl, acetate) 180 mg (400 unit) capsule 180 mg PO DAILY zinc gluconate 50 mg tablet 50 mg PO DAILY Alphagan P 0.1 % drops 1 drp ophthalmic (eye) TID hydrocodone-acetaminophen 5-325 mg tablet 1 tab PO BID pregabalin 150 mg capsule 150 mg PO TID Azo Cranberry 250 mg tablet,chewable 250 mg PO BID fluticasone furoate-vilanterol [Breo Ellipta] 100-25 mcg/dose blister with device 1 inh inhalation DAILY Qty: 60 6RF latanoprost 1 DROP bottle 1 drp Each Eye QHS atorvastatin 10 MG tablet 10 mg PO QHS alendronate [Fosamax] 70 MG tablet 70 mg PO MO aspirin 81 MG tablet 81 mg PO DAILY@0800 cyanocobalamin (vitamin B-12) [Vitamin B-12] 500 MCG tablet 500 mcg PO QWEEK omeprazole 20 MG capsule 20 mg PO DAILY hydroxyzine HCl 25 MG tablet 25 mg PO TID PRN (Reason: for rash) Fish Oil 500 MG capsule,delayed release(DR/EC) 500 mg PO DAILY gabapentin [Neurontin] 100 mg capsule 300 mg PO TID montelukast 10 mg tablet 10 mg PO QHS potassium chloride 10 mEq tablet,ER particles/crystals 10 meq PO BID uuvsthjopn-lxarsrvve-frsbvsyxe 40-10-12.5 mg tablet 1 tab PO DAILY fluticasone propionate 50 mcg/actuation spray,suspension 1 spray INTRANASAL DAILY primidone 50 mg tablet 100 mg PO BID trazodone 50 mg tablet 50 mg PO .QHS PRN PRN (Reason: sleep) albuterol sulfate 90 mcg/actuation HFA aerosol inhaler 2 puff inhalation Q4H PRN (Reason: shortness of breath or wheezing) Qty: 8.5 3RF Rx Instructions: administer with spacer Referrals / Follow Up: Meli Cruz DO [Primary Care Provider] - Lester Blankenship MD [Med Staff - Active Staff] - Disposition Disposition (needs filled in before D/C Order can be placed): Senior Living Facility
--- NOTE | 2024-01-13 16:31 | CASEMGMT ---
Discharge Planning Discharge orders, signed med list, and transport time sent to [facility] via [facility]Port. Wheelchair transport was scheduled with Mans[facility] for 6:30p. Nursing, SW, and patient updated. Unable to reach her sig other (Roberto) x2. Pt said she would call/text him. Odalys Hernández DC Planning Asst.
== END 2024-01-13 18:50 | disposition skilled nursing facility (03) ==
LOC: SDC 13:24 → MS3 13:24
PROVIDERS: Anesthesiology; Internal Medicine; Admitting Provider Orthopaedic Surgery Sports Medicine; Referring Provider Orthopaedic Surgery Sports Medicine; Visit Provider Orthopaedic Surgery Sports Medicine
PROC: (CPT 23472; principal; 2024-01-11 07:00)
DX: M19.011 Primary osteoarthritis, right shoulder (principal); Z68.41 Body mass index [BMI] 40.0-44.9, adult; E66.01 Morbid (severe) obesity due to excess calories; E11.22 Type 2 diabetes mellitus with diabetic chronic kidney disease; N18.30 Chronic kidney disease, stage 3 unspecified; Z79.51 Long term (current) use of inhaled steroids; I12.9 Hypertensive chronic kidney disease with stage 1 through stage 4 chronic kidney disease, or unspecified chronic kidney disease; M48.061 Spinal stenosis, lumbar region without neurogenic claudication; E78.00 Pure hypercholesterolemia, unspecified; G47.00 Insomnia, unspecified; K76.0 Fatty (change of) liver, not elsewhere classified; M47.816 Spondylosis without myelopathy or radiculopathy, lumbar region; Z79.83 Long term (current) use of bisphosphonates; Z79.899 Other long term (current) drug therapy; Z79.82 Long term (current) use of aspirin; J45.909 Unspecified asthma, uncomplicated; G60.9 Hereditary and idiopathic neuropathy, unspecified; G25.0 Essential tremor; G25.81 Restless legs syndrome; H40.9 Unspecified glaucoma; F32.A Depression, unspecified; F41.9 Anxiety disorder, unspecified; K21.9 Gastro-esophageal reflux disease without esophagitis; M81.0 Age-related osteoporosis without current pathological fracture
CPT/HCPCS: 23472; 01638; 23430; 64415; 36415; 73030; 76000; 80048; 80053; 82962; 82985; 83036; 83735; 84443; 85025; 85610; 85730; 86850; 86900; 86901; 87081; 88305; 88311; 94640; 94668; 96365; 96366; 97110; 97162; 97166; 97530; 97535; 99221; C1713; C1776; J7120; G0378; J2405; J3475

== ENCOUNTER → 2024-02-17 | Outpatient (REF) | payer MEDICARE, MEDICAID, SELFPAY ==
[2024-02-17 08:29] LABS: Hematocrit 32.8 % (37-47); Hemoglobin 10.7 g/dL (12.0-15.0); Mean Corp Hgb Conc 32.6 g/dL (32-36); Mean Corpuscular Hgb 28.2 pg (27.0-32.0); Mean Corpuscular Volume 86.3 fL (81-99); Platelet Count 182 K/mm3 (150-450); RBC Distribution Width CV 14.1 % (11.6-14.6); RBC Distribution Width SD 43.8 fl (35.1-43.9); White Blood Count 3.7 K/mm3 (4.4-11.0)
[2024-02-17 08:44] LABS: Anion Gap 7 (5-15); BUN 11 mg/dL (7-18); BUN/Creat Ratio 17.4 RATIO (10-20); Calcium,Total 8.5 mg/dL (8.5-10.1); Chloride 102 mmol/L (98-107); Cholesterol 132 mg/dL (200); Creatinine, Serum 0.63 mg/dL (0.55-1.02); EST Glomerular Filtration Rate 96 mL/min (>60); Est Glom Filt Rate - Afr Amer 117 mL/min (>60); Glucose 100 mg/dL (74-106); High Density Lipoprotein 41 mg/dL; Potassium 3.8 mmol/L (3.5-5.1); Sodium Level 135 mmol/L (136-145); Triglycerides 141 mg/dL; Very Low Density Lipoprotein 28 mg/dL (5-40)
[2024-02-17 09:04] LABS: Vitamin D,25 Hydroxy 62.1 ng/mL
== END ==
LOC: OLS.SW 07:08
PROVIDERS: Visit Provider Family Medicine
DX: I12.9 Hypertensive chronic kidney disease with stage 1 through stage 4 chronic kidney disease, or unspecified chronic kidney disease (principal); E11.22 Type 2 diabetes mellitus with diabetic chronic kidney disease; N18.30 Chronic kidney disease, stage 3 unspecified
CPT/HCPCS: 36415; 80048; 80061; 82306; 85027

== ENCOUNTER → 2024-02-23 05:00 | Outpatient (REF) | payer MEDICARE, MEDICAID, SELFPAY ==
[2024-02-23 08:19] LABS: Hemoglobin 10.6 g/dL (12.0-15.0); Mean Corp Hgb Conc 33.1 g/dL (32-36); Mean Corpuscular Hgb 28.7 pg (27.0-32.0); Mean Corpuscular Volume 86.7 fL (81-99); Mean Platelet Vol. 10.1 fl (6.2-12.0); Platelet Count 199 K/mm3 (150-450); RBC Distribution Width CV 14.2 % (11.6-14.6); RBC Distribution Width SD 44.7 fl (35.1-43.9); Red Blood Count 3.69 M/mm3 (4.2-5.4); White Blood Count 4.5 K/mm3 (4.4-11.0)
== END ==
LOC: OLS.SW 05:00
PROVIDERS: Visit Provider Family Medicine
DX: I10 Essential (primary) hypertension (principal)
CPT/HCPCS: 36415; 85027

== ENCOUNTER 2024-07-13 14:00 | Outpatient (RCR) | payer MEDICARE, MEDICAID, SELFPAY ==
--- NOTE | 2024-06-13 15:10 | HP.PTEVAL_ITS ---
Patient's Visit Information Visit Information Visit Information: NICOLASA HOUSE is a 78 year old F referred to Physical Therapy by Dr. Jerel Lewis MD with a diagnosis of REPEATED FALLS, BODY MASS INDEX, R ROTATOR CUFF STRAIN. Date of Evaluation: 06/13/24 Physical Therapist: Mallory Bowers PT, Cert MDT Visit Plan Frequency: 2x /Week Duration: 4-6 Weeks Plan: AQUATIC THERAPY 2X'S A WK X 4-6 WKS FOR: GAIT AND BALANCE TRAINING L KNEE PAIN RELIEF L LE ROM, STRETCHING AND STRENGTHENING HEP Subjective Subjective: THIS PATIENT PRESENTS TO PT WITH C/O L KNEE PAIN. SHE STATES THE DOCTOR WANTS HER TO DO WATER THERAPY. SHE REPORTS SHE THE LAST WEEK IN FEBRUARY X 3 IN ONE DAY BECAUSE HER KNEES KEPT GIVING OUT ON HER. SHE STATES SHE WENT D OWN HARD. SHE WAS IN HER APPARTMENT USING HER ROLLATOR. IT TOOK AWHILE TO GET HELP THEN WENT BY [facility]QUAD TO [facility] [place] THEN WAS IN/OUT OF LONG-TERM UNTIL Tuesday06/11/24. SHE REPORTS SEEING HER PCP YESTERDAY AND PAIN MGMT IN [place] FOR LBP/MEDICINE BEFORE PT TODAY. SHE REPORTS DR. LEWIS WANTS HER TO HAVE AQUATIC THERAPY TO TRY TO AVOID NEEDING A TKR ON HER L KNEE. SHE STATES HE DID A TKR ON HER R KNEE ABOUT 8 TO 10 YEARS AGO AND THAT WENT WELL BUT HER R KNEE HAS BEEN COMPENSATING FOR THE L KNEE ALL THESE YEARS. HER GOAL IS TO STRENGTHEN HER L KNEE ENOUGH TO NOT NEED SURGERY BUT SHE IS WILLING TO HAVE SURGERY IF NEEDED. GETTING AROUND WITH RWW AT ALL TIMES AT HOME NOW. NO FALLS END OF APR 2024. R REVERSE TOTAL SHLD REPLACEMENT SURGERY FEB 11 2024 WHICH IS DOING OK NOW PER PATIENT REPORT. SEE [facility] EMR FOR PMH - REVIEWED WITH PATIENT. CURRENTLY L KNEE PAIN IS CONSTANT RANGING 4-10/10 AND INCREASING WITH STANDING, WALKING, PROLONGED SITTING AND DECREASES WITH GOING TO BED AND PAIN PATCHES. PATIENT DOES NOT HAVE TO DO STEPS. SHE LIVES ALONE IN AN APPARTMENT WITH AN ELEVATOR. Objective Objective: THIS PATIENT AMBULATES INDEP'LY INTO PT WITH FWW WITH DECREASED CADANCE, EXCESSIVE TRUNK FLEXION AND STATING SHE IS REALLY TIRED FROM HAVING ANOTHER SURINDER'T ALREADY TODAY. AFTER AMBULATING APPROX 50 FEET THIS PT OFFERED TO TAKE PATIENT THE REST OF THE WAY BACK TO THE TREATMENT ROOM IN [place]/C AND PATIENT WAS RELUCTANT BUT AGREEABLE. AFTER RESTING DURING SUBJECTIVE PORTION OF EXAM SHE DID REPORT FEELING MUCH BETTER. UPON EXAM TODAY L LE LIGHT TOUCH SENSATION IS GROSSLY INTACT. L KNEE GIRTH MEASUREMENTS: AT JT LINE 51.5 CM, 6 DISTAL 44 CM, 6 PROX 67 CM. ROM: L KNEE AROM IN SITTIN-0-110 WITH C/O ERP. STRENGTH: HIP FLEX L 4-/5, R 4/5, KNEE EXT L 3-/5, R 4-/5, KNEE FLEX L 3-/5, R 4-/5, ANKLE L 4/5, R 4/5. TUG TIME WITH FWW AND SUPERVISION: 47.76. 30 SEC STS TEST WITH NOREEN UE ASSIST AND SUPERVISION: 5. PATIENT IS PLEASANT AND COOPERATIVE TO WORK WITH AND FOLLOWS COMMANDS WELL. Balance/Special Test Scores Lower Extremity Functional Score: 20 Goals Goal 1:: DECREASE C/O L KNEE PAIN BY AT LEAST 50% TO EASE ADL'S. Goal Time Frame: 4-6 Weeks Goal 2:: INCREASE FUNCTIONAL ROM OF L KNEE TO 0-0-120 TO IMPROVE ADL AND GAIT FUNCTION Goal Time Frame: 4-6 Weeks Goal 3:: PATIENT WILL BE ABLE TO COMPLETE 8 STS IN 30 WITH ONE UE ASSIST TO DEMONSTRATE IMPROVED LE FUNCTIONAL STRENGTH. Goal Time Frame: 4-6 Weeks Goal 4:: PATIENT WILL INDEP'LY SAFELY COMPLETE TUG IN < 25 SECS WITH FWW TO DEMONSTRATE IMPROVED GAIT STABILITY Goal Time Frame: 4-6 Weeks Goal 5:: INDEP HEP Goal Time Frame: 4-6 Weeks Rehabilitation Potential Physical Therapy Diagnosis: L KNEE PAIN, EDEMA, WEAKNESS, STIFFNESS AND IMPAIRED MOBILITY. Rehabilitation Potential: Fair Anticipated Interventions Patient/Client Instruction: Educate patient on: Condition, Plan of Care and Risk Factors For the Purpose of:: To improve self management Therapeutic Exercise to Include: Strength training, Postural training, Flexibilty training, Gait and locomotor training, Neuromotor development, In an aquatic setting and Dynamic Lumbar Stabilization For the Purpose of:: To decrease pain, To decrease swelling/inflammation, To increase ROM, To improve muscle performance and motor function, To increase tolerance to activity/condition/position, To improve performance and independence with ADL's, To improve ability of physical actions for home/ community/work/leisure, To improve gait and locomotor functions and To improve self management Text: Thank you for the opportunity to evaluate your patient. For Medicare and Medicare HMO plans, please review the plan of care and approve it. It will need to be FAXED BACK to us at [phone] for Medicare purposes. For Medicare only, by signing this I certify the plan of care. Please let me know if there are questions or concerns regarding this plan of care. Physician Signature: _Date:
--- NOTE | 2024-07-13 15:19 | HP.PTDCSUM_ITS ---
Discharge Summary D/C summary: It has been my pleasure to treat NICOLASA HOUSE referred by Dr. Jerel Lewis MD, with the diagnosis of REPEATED FALLS, BODY MASS INDEX, R ROTATOR CUFF STRAIN for a total of 10 visit(s). Discharge Date: 07/13/24 Please see the following information for a summary of their discharge status. Subjective Subjective: PATIENT REPORTS SHE HAS FOLLOW UP PENDING WITH DR. LEWIS NEXT MONTH. PATIENT REPORTS SHE HASN'T HAD ANY FALLS THIS MONTH SINCE STARTING PT. SHE STATES SHE KEEPS HER WALKER WITH HER AT ALL TIMES BECAUSE HER L KNEE STILL GIVES OUT ON HER. WHEN I FIRST STARTED STANDING WAS A BIG PROBLEM AND I CAN STAND LONGER NOW. PATIENT STATES I CAN FINALLY GET MY DISHES DONE BUT I STILL CAN'T STAND AN HOUR. STATES SHE CAN STAND ABOUT 15 MINUTES AT A TIME NOW. PATIENT STATES SHE IS VERY STRESSED OUT RIGHT NOW BECAUSE SHE IS GOING TO HAVE A HOUSE INSPECTION AND GIRLS HELPING HER GET READY SO SHE WANTS TO STOP PT FOR NOW. SHE WANTS TO COME BACK IN THE FUTURE WHEN THE INSPECTION IS OVER IN A FEW MONTHS IF POSSIBLE. Pain Neck: Pain Intensity (Out of 10): 5 L knee: Pain Intensity (Out of 10): 6 LBP: Pain Intensity (Out of 10): 3 Overall Improvement % Improvement: 35 Objective Objective/Function: PATIENT WAS SEEN TODAY FOR RE-ASSESSMENT OF PROGRESS TOWARD THE SET PT GOALS AND THE NEED FOR FURTHER PHYSICAL THERAPY VS READINESS FOR DISCHARGE. HEP CHECK. THIS PATIENT IS MAKING SLOW PROGRESS WITH PT AND A GOOD CANDIDATE TO CONTINUE PT BASED ON PROGRESS MADE AND ROOM FOR FURTHER PT. SHE REMAINS A FALL RISK. PATIENT ACKNOWLEDGES AWARENESS BEING A FALL RISK AND BENE FITS OF CONT. PT BUT STATES IT IS JUST TOO MUCH FOR HER RIGHT NOW. UPON EXAM TODAY: L LE LIGHT TOUCH SENSATION IS GROSSLY INTACT. L KNEE GIRTH MEASUREMENTS: AT JT LINE 51 CM, 6 DISTAL 45 CM, 6 PROX 66 CM. ROM: L KNEE AROM IN SITTIN-0-118 WITH C/O ERP. STRENGTH: HIP FLEX L 4-/5, R 4/5, KNEE EXT L 3-/5, R 4/5, KNEE FLEX L 3-/5, R 4/5, ANKLE L 4/5, R 4/5. TUG TIME WITH FWW AND SUPE RVISION: 38.15. 30 SEC STS TEST WITH NOREEN UE ASSIST AND SUPERVISION: 6. PATIENT IS PLEASANT AND COOPERATIVE TO WORK WITH AND FOLLOWS COMMANDS WELL. Goals Goal 1:: DECREASE C/O L KNEE PAIN BY AT LEAST 50% TO EASE ADL'S. Goal Progress: Progressing Goal 2:: INCREASE FUNCTIONAL ROM OF L KNEE TO 0-0-120 TO IMPROVE ADL AND GAIT FUNCTION Goal Progress: Progressing Goal 3:: PATIENT WILL BE ABLE TO COMPLETE 8 STS IN 30 WITH ONE UE ASSIST TO DEMONSTRATE IMPROVED LE FUNCTIONAL STRENGTH. Goal Progress: Progressing Goal 4:: PATIENT WILL INDEP'LY SAFELY COMPLETE TUG IN < 25 SECS WITH FWW TO DEMONSTRATE IMPROVED GAIT STABILITY Goal Progress: Progressing Goal 5:: INDEP HEP Goal Progress: Progressing Plan Plan: D/C AT PATIENTS REQUEST. D/C Information d/c sentence: If there are questions or concerns regarding this patient's physical therapy, please feel free to call me at [phone]. Thank you for the referral of this patient. Sincerely, Mallory Bowers, PT, Cert MDT Balance/Gait/Functional tests Balance/Special Test Scores Lower Extremity Functional Score: 24 Improvement % Improvement: 35
== END 2024-07-13 19:00 | disposition home or self-care (01) ==
LOC: PT 14:00
PROVIDERS: Referring Provider Specialist; Visit Provider Specialist
DX: S46.011D Strain of muscle(s) and tendon(s) of the rotator cuff of right shoulder, subsequent encounter (principal); R29.6 Repeated falls
CPT/HCPCS: 97113; 97162; 97530